=== PATIENT | male | born 1965 | race African-American/Black ===

== ENCOUNTER 2018-11-26 06:07 | Inpatient (IN) | payer MEDICARE ==
[2018-11-26 06:59] LABS: Anion Gap 16 mmol/L (10-20); BUN (Urea Nitrogen) 6 mg/dL (8.4-25.7); Calc. Creatinine Clearance 0 mL/min (70-130); Calcium 9.7 mg/dL (7.8-10.44); Carbon Dioxide 23 mmol/L (22-29); Chloride 89 mmol/L (98-107); Estimated GFR-MDRD 73; Glucose 94 mg/dL (70-105); Potassium 6.5 mmol/L (3.5-5.1); Sodium 121 mmol/L (136-145)
[2018-11-26 07:34] LABS: #Basophils 0.1 thou/uL (0.0-0.2); #Lymphocytes 1.2 thou/uL (1.20-3.40); #Monocytes 0.8 thou/uL (0.11-0.59); %Basophils 0.5 % (0.0-1.0); %Eosinophils 0.4 % (0.0-10.0); %Lymphocytes 11.1 % (21.0-51.0); %Monocytes 7.1 % (0.0-10.0); %Neutrophils 80.9 % (42.0-75.0); Hemoglobin 15.8 g/dL (14.0-18.0); Mean Corpuscular HGB CONC 34.6 g/dL (32.0-36.0); Mean Corpuscular Hemoglobin 34.7 pg (27.0-31.0); Mean Platelet Volume 6.6 fL (7.4-10.4); Platelet Count 362 thou/uL (130-400); RBC Distribution Width 14.3 % (11.5-14.5); Red Blood Cell (RBC) Count 4.56 mill/uL (4.70-6.10); White Blood Cell (WBC) Count 11.1 thou/uL (4.8-10.8)
[2018-11-26] MEDS ORDERED: Insulin Regular 300 UNITS/3 ML VIAL ONE (07:46)
[2018-11-26] MEDS ORDERED: Dextrose 50% Abboject 50 ML SYRINGE ONE (07:46)
[2018-11-26 08:35] LABS: Bilirubin Negative (Negative); Blood, Urine Negative (Negative); Clarity Clear (Clear); Glucose, Urine (Dipstick) Normal (Negative); Leukocyte 75 Leu/uL (Negative); Nitrite Negative (Negative); Protein, Urine (Dipstick) 100 mg/dL (Neg-Trace); RBC/HPF 0-3 HPF (0-3); Squamous Epithelial 0-3 HPF (0-3)
[2018-11-26 08:36] LABS: Bacteria/HPF 1+ HPF (None Seen)
[2018-11-26 08:54] LABS: Creatinine, Urine 172.49 mg/dL (63-166)
[2018-11-26 09:40] VITALS: BMI 21.2
[2018-11-26] MEDS ORDERED: PROVENTIL INHALER 6.7 G (200 INHALATIONS) INH PRN (10:18)
[2018-11-26] MEDS: Hydrocortisone Sod Succ/PF 100 mg/2 ml Vial IVP SCH ×3 (10:41→22:08)
[2018-11-26] MEDS: Sodium Chloride 0.9% 1,000 ML IV SCH ×2 (10:41→22:08)
[2018-11-26] MEDS ORDERED: Thiamine 100 MG TAB PO SCH (10:45)
--- NOTE | 2018-11-26 11:23 | HP ---
CHIEF COMPLAINT: Abnormal labs. HISTORY OF PRESENT ILLNESS: This patient is a 53-year-old male with a history of rheumatoid arthritis, who presented to the emergency department. He reports that he presented to his primary care physician for his annual physical. He had labs obtained as part of that and was subsequently called by his PCP indicating that his sodium level was too low at 118 and he needed to present to the hospital. The patient did present here and his sodium was low as well as his potassium being somewhat high. The patient reports that he has had high potassium levels in the past on outpatient labs done by his fisheries inspector, Dr. Kathrine Ribeiro. The patient reports that he has felt just some generalized weakness and intermittent episodes of feeling hot, but this is longstanding. He has no new symptoms and reports that he did not present for labs because he felt in any way other than his baseline, he was simply getting his annual physical. The patient does report drinking beer daily, but reports it is less than 5 per day on average. He reports a fairly normal diet. Indicates that his rheumatoid prevents him from doing much cooking, but he does eat a lot of fast food, but does not shy away from proteins or meats at all. REVIEW OF SYSTEMS: The patient reports some joint pain and occasional swelling related to his rheumatoid arthritis. Otherwise, all systems reviewed, all pertinent positives and negatives noted in HPI. PAST MEDICAL HISTORY: Notable for hypertension, COPD, rheumatoid arthritis, followed by Dr. Kathrine Ribeiro, history of vocal cord cancer , but that is no longer being followed and considered cleared. He has a history of atrial fibrillation followed by Dr. Oconnor. He also reports a history of a gastric ulcer. Of note, the patient says he has been on steroids for many years and that seems to be the only medication that truly controls his rheumatoid pain. SOCIAL HISTORY: The patient does drink beer. He reports less than 5 per day on average. Denies drugs. He says he smokes about 4 cigars per day. He is single. His brother is his surrogate decision maker. He is full code. FAMILY HISTORY: Notable for hypertension and diabetes. ALLERGIES: CODEINE, FLU VACCINE, SULFA, AND TRAMADOL. CURRENT MEDICATIONS: 1. Albuterol nebs 2.5 q.i.d. p.r.n. 2. Prednisone 10 mg p.o. daily. 3. Albuterol 1 inhalation q.4 hours p.r.n. 4. Multivitamin. 5. Magnesium. 6. Zinc. 7. Vitamin D3 1 p.o. daily. 8. Qvar 1 inhalation b.i.d. 9. Lisinopril 10 mg daily. 10. Plaquenil 200 mg b.i.d. 11. Folvite 1 mg p.o. daily. 12. Vitamin D3 1000 units p.o. daily. 13. Sulindac 150 mg b.i.d. 14. Vitamin B complex 1 p.o. daily. PHYSICAL EXAMINATION: VITAL SIGNS: Temperature 97.7, pulse 75, respirations 18, O2 saturations 94% on room air, and BP is 123/76. GENERAL APPEARANCE: Thin, age-appropriate male, in no distress. Awake, alert, oriented, pleasant, and cooperative. HEENT: [place]. No OP lesions. Denture is in place. NECK: Supple and symmetric. No lymphadenopathy, JVD, or carotid bruits. HEART: Regular rate and rhythm. No murmurs, gallops, or rubs. LUNGS: Clear to auscultation bilaterally. Good chest wall expansion and air exchange. ABDOMEN: Soft, nontender, and nondistended. Positive bowel sounds. No masses. No organomegaly. EXTREMITIES: No cyanosis, clubbing, or edema. No significant rheumatoid changes. PSYCH: Normal affect and behavior. NEUROLOGICAL: The patient appears to be fully intact. Moving all extremities spontaneously. Cranial nerves and cognition are normal. LABORATORY DATA: White count 11.1, hemoglobin 15.8, platelets 362. Sodium 121, potassium 6.5, chloride 89, CO2 23, BUN 6, creatinine 1.25. Urinalysis shows mild proteinuria, trace ketones, trace leukocyte esterase, 0-3 red cells, 7-10 white cells, some hyaline casts. Urine creatinine is 1.72. Urine sodium is 20. IMPRESSION AND PLAN: 1. Hyponatremia, possibly a combination of beer potomania and adrenal insufficiency. The patient has a history of hyponatremia going back to 2014, at which time his sodium levels ranged from 128 to 132. The highest recorded is 134 in 2017. The patient does have a fair amount of intake of beer. He has higher levels recorded in the past. He obviously has some macrocytosis, so it is unclear if this is enough to cause his chronic hyponatremia. He also has high potassium levels and has been on steroids for a long time. Therefore, adrenal insufficiency is a concern as well. We will cover with hydrocortisone. We will give very gentle hydration. Consult Nephrology. 2. Hyperkalemia. Again, could be some component of adrenal insufficiency. The patient does report that he has had high potassium in the past. In the emergency department, he received some calcium gluconate, D50 and insulin. His EKG does not show any significant peaking of the T-waves. We will again hydrate gently and recheck his lab values in a couple of hours. If it continues to be problematic , we will consider some Kayexalate. 3. History of rheumatoid arthritis. Continue with the Plaquenil, Sulindac and prednisone. 4. History of atrial fibrillation. Continue the Multaq. He is not currently on anticoagulation. 5. Hypertension, continue with lisinopril. 6. Chronic obstructive pulmonary disease. Continue bronchodilators and inhaled steroids. 7. Mild macrocytosis, likely secondary to chronic alcohol consumption and rheumatoid arthritis. Continue with the folic acid. We will add p.o. thiamine. 8. Mild leukocytosis, likely secondary to the ongoing steroid use. Job ID: [id number] [facility]
[2018-11-26 13:00] LABS: Anion Gap 15 mmol/L (10-20); BUN (Urea Nitrogen) 6 mg/dL (8.4-25.7); Calc. Creatinine Clearance 76 mL/min (70-130); Calcium 9.5 mg/dL (7.8-10.44); Carbon Dioxide 19 mmol/L (22-29); Chloride 92 mmol/L (98-107); Estimated GFR-MDRD 88; Glucose 78 mg/dL (70-105); Potassium 4.3 mmol/L (3.5-5.1); Sodium 122 mmol/L (136-145)
[2018-11-26] MEDS: Mometasone 100 MCG HFA INHALER INH SCH (18:38)
[2018-11-26] MEDS: Hydroxychloroquine Sulfate 200 MG TAB PO SCH (22:01)
[2018-11-27] MEDS: Hydrocortisone Sod Succ/PF 100 mg/2 ml Vial IVP SCH (05:36)
[2018-11-27] MEDS: Mometasone 100 MCG HFA INHALER INH SCH (06:28)
[2018-11-27 07:35] LABS: Anion Gap 12 mmol/L (10-20); BUN (Urea Nitrogen) 8 mg/dL (8.4-25.7); Calc. Creatinine Clearance 88 mL/min (70-130); Calcium 8.8 mg/dL (7.8-10.44); Carbon Dioxide 20 mmol/L (22-29); Chloride 96 mmol/L (98-107); Estimated GFR-MDRD Greater than 90; Glucose 112 mg/dL (70-105); Potassium 4.1 mmol/L (3.5-5.1); Sodium 124 mmol/L (136-145)
--- NOTE | 2018-11-27 08:46 | PDOC.HOSPP ---
- Subjective Subjective: Feels well. No complaints. - Objective Vital Signs & Weight: Vital Signs (12 hours) Temp Pulse Resp BP Pulse Ox 11/27/18 08:10 97.7 F 63 18 162/84 H 98 11/27/18 06:28 59 L 16 99 11/27/18 04:00 97.9 F 65 16 174/85 H 95 11/26/18 23:30 74 140/86 Weight Weight 150 lb 9.6 oz I&O: 11/26/18 11/27/18 11/28/18 06:59 06:59 06:59 Intake Total 980 Output Total 1600 Balance -620 Result Diagrams: 11/26/18 06:31 11/27/18 06:51 ROS - Review of Systems All systems: All other ROS were reviewed and found negative. - Medication Medications: Active Medications Generic Name Dose Route Start Last Admin Trade Name Freq PRN Reason Stop Dose Admin Hydroxychloroquine Sulfate 200 mg 11/26/18 21:00 11/26/18 22:01 Plaquenil PO 200 mg BID APARNA Administration Mometasone Furoate 1 puff 11/26/18 18:30 11/27/18 06:28 Asmanex Hfa 100 Mcg INH 1 puff BID-RT APARNA Administration Sulindac 150 mg 11/26/18 21:00 11/26/18 22:01 Clinoril PO 150 mg BID APARNA Administration - Exam NAD, awake alert Neck: supple, symmetric, no JVD, no Thyromegaly, no lymphadenopathy, no carotid bruit Heart: RRR, no murmur, no gallops, no rubs, normal peripheral pulses Respiratory: CTAB, no wheezes, no rales, no ronchi, normal chest expansion, no tachypnea, normal percussion Gastrointestinal: soft, non-tender, non-distended, normal bowel sounds, no palpable masses, no hepatomegaly, no splenomegaly, no bruit Extremities: no cyanosis, no clubbing, no edema Skin: normal turgor, no lesions, no rashes Hosp A/P (1) Hyperkalemia Code(s): E87.5 - HYPERKALEMIA Status: Acute (2) Atrial fib/flutter, transient Code(s): PGU1428 - Status: Acute (3) Hyponatremia Code(s): E87.1 - HYPO-OSMOLALITY AND HYPONATREMIA Status: Acute (4) Rheumatoid arthritis Code(s): M06.9 - RHEUMATOID ARTHRITIS, UNSPECIFIED Status: Acute (5) COPD (chronic obstructive pulmonary disease) Status: Acute - Plan Hyponatremia is exacerbation of chronic hyponatremia. Likely related to steroids and beer consumption. Improved somewhat today. Will continue with NS, restrict free water. Transfer to [facility]. Recheck labs in am. Nephrology consult Pending. Apparently afib was a transient episode. He is not on anticoagulation. NSR on monitor.
[2018-11-27] MEDS ORDERED: Lisinopril 10 MG TAB PO SCH (09:00)
[2018-11-27] MEDS: Thiamine 100 MG TAB PO SCH (09:24)
[2018-11-27] MEDS: Hydroxychloroquine Sulfate 200 MG TAB PO SCH ×2 (09:24→20:27)
[2018-11-27] MEDS: Enoxaparin Sodium 40 MG/0.4 ML SYRINGE SC SCH (09:24)
[2018-11-27] MEDS: predniSONE 5 MG TAB PO SCH (09:24)
[2018-11-27] MEDS: Folic Acid 1 MG TAB PO SCH (09:24)
[2018-11-27] MEDS: Sodium Chloride 0.9% 1,000 ML IV SCH (09:25)
[2018-11-28] MEDS: Sodium Chloride 0.9% 1,000 ML IV SCH (02:19)
[2018-11-28 06:33] LABS: Anion Gap 11 mmol/L (10-20); BUN (Urea Nitrogen) 10 mg/dL (8.4-25.7); Calc. Creatinine Clearance 96 mL/min (70-130); Calcium 8.8 mg/dL (7.8-10.44); Carbon Dioxide 25 mmol/L (22-29); Chloride 101 mmol/L (98-107); Estimated GFR-MDRD Greater than 90; Glucose 79 mg/dL (70-105); Potassium 3.8 mmol/L (3.5-5.1); Sodium 133 mmol/L (136-145)
[2018-11-28] MEDS: Mometasone 100 MCG HFA INHALER INH SCH ×2 (07:35→07:37)
[2018-11-28 08:14] VITALS: BP 167/73; TEMP 97.6
[2018-11-28] MEDS: Folic Acid 1 MG TAB PO SCH (08:47)
[2018-11-28] MEDS: Thiamine 100 MG TAB PO SCH (08:48)
[2018-11-28] MEDS: predniSONE 5 MG TAB PO SCH (08:48)
[2018-11-28] MEDS: Enoxaparin Sodium 40 MG/0.4 ML SYRINGE SC SCH (08:49)
[2018-11-28] MEDS: Hydroxychloroquine Sulfate 200 MG TAB PO SCH (08:50)
--- NOTE | 2018-11-28 10:42 | CON ---
DATE OF CONSULTATION: REQUESTING PHYSICIAN: Richie Abbasi MD REASON FOR CONSULTATION: Hyponatremia. IMPRESSION: Hyponatremia, this is likely beer potomania, they cannot completely rule out SIADH at this point, hyperkalemia , the patient is on lisinopril. PLAN: 1. Discontinue normal saline. 2. Urine chemistry including urine sodium and osmolality to evaluate workup of hyponatremia and treat accordingly. 3. Regular diet with increased amount of protein. 4. Counseled on the need to discontinue alcohol abuse. 5. Further management will be dependent on the clinical course as well as results of the urine chemistry. 6. Discontinue lisinopril and use alternative antihypertensive medications if blood pressure begins to go up. HISTORY OF PRESENT ILLNESS: A 53-year-old gentleman with significant history of rheumatoid arthritis who presented under direction of primary care physician because of very low sodium 118. The patient does drink significant on daily basis. The patient could not even quantify how much he drinks actively and has been doing this for many years. The patient does have history of dizziness, which I do believe is the combination of hyponatremia and possible alcohol effect. Of note, the patient is also found to be hyperkalemic and according to the patient, he has been dealing with these for sometime. As a result of all these findings in terms of electrolyte abnormality, decision has been taken to involve Renal in the management of this case. PAST MEDICAL HISTORY: Significant for; 1. Hypertension. 2. COPD. 3. Rheumatoid arthritis. 4. Atrial fibrillation. 5. Gastric ulcer. SOCIAL HISTORY: Significant for alcohol consumption and cigar. FAMILY HISTORY: Not significantly related to present illness. REVIEW OF SYSTEMS: As documented in the body of the history. All other systems were reviewed and found not to be significantly related to present illness. ALLERGIES: TO CODEINE, FLU VACCINE, SULFA, AND TRAMADOL. PHYSICAL EXAMINATION: GENERAL: The patient was found not to be in any obvious distress and noted with the following vital signs. VITAL SIGNS: Afebrile, temperature 97.7, pulse 75, respiratory rate of 18, O2 saturation of 94% with blood pressure 123/76. HEENT: Unremarkable. CARDIOVASCULAR SYSTEM: First and second heart sounds were heard. RESPIRATORY SYSTEM: Clear to auscultation. DIGESTIVE SYSTEM: Revealed a benign abdomen. Positive bowel sounds. EXTREMITIES: No peripheral edema. SKIN: No new gross rash. LYMPHATICS: No peripheral lymphadenopathy. SUMMARY: A 53-year-old gentleman who presented with significant electrolyte abnormality including hyperkalemia and hyponatremia. Thank you for this consultation. We will follow with you. Job ID: [id number]
== END 2018-11-28 11:04 | disposition home or self-care (01) | DRG 641 ==
LOC: ERS 06:07 → 2NO 09:36 → ONC 11-27 11:23
PROVIDERS: ADMIT Internal Medicine; ATTEND Internal Medicine
DX: E87.1 Hypo-osmolality and hyponatremia (principal); M06.9 Rheumatoid arthritis, unspecified; I10 Essential (primary) hypertension; J44.9 Chronic obstructive pulmonary disease, unspecified; I48.91 Unspecified atrial fibrillation; F17.210 Nicotine dependence, cigarettes, uncomplicated; E87.5 Hyperkalemia; D75.89 Other specified diseases of blood and blood-forming organs; T38.0X5A Adverse effect of glucocorticoids and synthetic analogues, initial encounter; D72.829 Elevated white blood cell count, unspecified; Z88.5 Allergy status to narcotic agent; Z88.2 Allergy status to sulfonamides; Z88.7 Allergy status to serum and vaccine
CPT/HCPCS: 36415; 80048; 81003; 81015; 82570; 83930; 83935; 84300; 84443; 85025; 93005; 96365; 96375; J0610; J1650; J1720; J1815; J3490; J7512

== ENCOUNTER 2019-03-03 08:29 | Outpatient (CLI) | payer MEDICARE ==
--- NOTE | 2019-03-03 10:51 | BD ---
BONE DENSITOMETRY USING DEXA: HISTORY: Postmenopausal screening for osteoporosis. FINDINGS: Lumbar Spine: BMD (g/cm2) L1 0.701 T-Score: -3.4 Z-Score: -0.8 L2 0.910 T-Score: -1.7 Z-Score: -2.1 L3 0.877 T-Score: -2.1 Z-Score: -2.5 L4 0.788 T-Score: -2.7 Z-Score: -3.2 L1-L4 0.815 T-Score: -2.5 Z-Score: -3.0 Femoral Neck: 0.574 T-Score: -2.6 Z-Score: -2.1 Total Femur: 0.719 T-Score: -2.1 Z-Score: -1.9 The 10-year fracture risk for a major osteoporotic fracture is 9.3% and for a hip fracture is 3.7%. Impression: Osteoporosis. POS: OFF
== END 2019-03-03 08:30 | disposition home or self-care (01) ==
LOC: BICMAMMO 08:29
PROVIDERS: ATTEND Internal Medicine Rheumatology
DX: M81.8 Other osteoporosis without current pathological fracture (principal)
CPT/HCPCS: 77080

== ENCOUNTER 2019-03-18 11:50 | Emergency (ER) | payer MEDICARE ==
--- NOTE | 2019-03-18 12:35 | RAD ---
EXAM: Chest PA and lateral: HISTORY: Wheezing. COMPARISON: 02/12/2016 FINDINGS: Heart: Normal cardiac silhouette Aorta: Unremarkable Pulmonary vessels: Normal Costophrenic angles: Costophrenic angles are clear. Lungs: No consolidation or masses. Hyperinflation. Chronic changes. Pneumothorax: No pneumothorax Osseous structures: No acute osseous abnormalities. Previous vertebroplasty. Stable chronic compressi on fractures of the mid thoracic spine IMPRESSION: 1. No acute cardiopulmonary process. 2. Hyperinflation. Chronic changes.
== END 2019-03-18 13:28 | disposition home or self-care (01) ==
LOC: ERS 11:50
DX: J44.1 Chronic obstructive pulmonary disease with (acute) exacerbation (principal); I48.91 Unspecified atrial fibrillation; M06.9 Rheumatoid arthritis, unspecified; F17.210 Nicotine dependence, cigarettes, uncomplicated; Z79.899 Other long term (current) drug therapy; Z79.51 Long term (current) use of inhaled steroids; Z79.52 Long term (current) use of systemic steroids
CPT/HCPCS: 71046; 87081; 87430; 94640

== ENCOUNTER 2019-03-27 12:47 | Outpatient (CLI) | payer MEDICARE ==
--- NOTE | 2019-03-27 12:58 | RAD ---
XR Chest Pa Lat @ [facility] History: Dyspnea Comparison: Radiograph March 18, 2019 Findings: Chronic scarring right lung base. Lungs are hyperinflated. No pneumothorax. No effusion. Mu ltiple thoracic spine compression fractures, some of which contain cement. Impression: Obstructive pulmonary disease otherwise no acute intrathoracic abnormality.
== END 2019-03-27 12:48 | disposition home or self-care (01) ==
LOC: RAD 12:47
PROVIDERS: ATTEND Internal Medicine Critical Care Medicine
DX: R06.00 Dyspnea, unspecified (principal); J44.9 Chronic obstructive pulmonary disease, unspecified
CPT/HCPCS: 71046

== ENCOUNTER 2019-04-21 19:01 | Inpatient (IN) | payer MEDICARE ==
[2019-04-21 20:05] LABS: #Eosinphils 0.2 thou/uL (0.0-0.7); #Lymphocytes 1.2 thou/uL (1.20-3.40); #Monocytes 0.9 thou/uL (0.11-0.59); #Neutrophils 8.5 thou/uL (1.40-6.50); %Basophils 0.2 % (0.0-1.0); %Eosinophils 1.5 % (0.0-10.0); %Lymphocytes 10.8 % (21.0-51.0); %Monocytes 8.1 % (0.0-10.0); %Neutrophils 79.6 % (42.0-75.0); Hemoglobin 13.6 g/dL (14.0-18.0); Mean Corpuscular Hemoglobin 33.3 pg (27.0-31.0); Mean Corpuscular Volume 97.7 fL (78.0-98.0); Mean Platelet Volume 6.3 fL (7.4-10.4); Platelet Count 357 thou/uL (130-400); RBC Distribution Width 14.5 % (11.5-14.5); Red Blood Cell (RBC) Count 4.09 mill/uL (4.70-6.10); White Blood Cell (WBC) Count 10.7 thou/uL (4.8-10.8)
[2019-04-21 20:26] LABS: ALT (SGPT) 16 U/L (8-55); AST (SGOT) 33 U/L (5-34); Albumin 3.9 g/dL (3.5-5.0); Alkaline Phosphatase 143 U/L (40-110); Anion Gap 13 mmol/L (10-20); BUN (Urea Nitrogen) 8 mg/dL (8.4-25.7); Bilirubin, Total 0.6 mg/dL (0.2-1.2); Calc. Creatinine Clearance 0 mL/min (70-130); Calcium 9.4 mg/dL (7.8-10.44); Carbon Dioxide 26 mmol/L (22-29); Chloride 90 mmol/L (98-107); Estimated GFR-MDRD 78; Globulin 4.1 g/dL (2.4-3.5); Glucose 121 mg/dL (70-105); Potassium 5.7 mmol/L (3.5-5.1); Sodium 123 mmol/L (136-145)
--- NOTE | 2019-04-21 21:37 | RAD ---
CHEST PORTABLE ONE VIEW: 04/21/19 HISTORY: Syncope. Heart size is within normal limits. The lungs show chronic change. Vertebroplasty changes are noted. IMPRESSION: No active intrathoracic disease. POS: [facility]
[2019-04-21] MEDS ORDERED: Piperacillin/Tazobactam 4.5 GM VIAL ONE (22:15)
[2019-04-22] MEDS ORDERED: Acetaminophen 325 MG TAB PO PRN (01:47)
[2019-04-22] MEDS ORDERED: Ondansetron PF 4 MG/2 ML Vial IVP PRN (01:47)
[2019-04-22] MEDS ORDERED: PROVENTIL INHALER 6.7 G (200 INHALATIONS) INH PRN (01:51)
[2019-04-22] MEDS ORDERED: Albuterol Sulfate 2.5 mg/3 ml Neb NEB PRN (01:51)
[2019-04-22] MEDS ORDERED: Lorazepam 2 MG/ML VIAL SLOW IVP PRN (01:58)
[2019-04-22] MEDS ORDERED: Sodium Chloride 0.9% 1,000 ML IV SCH ×2 (02:15→09:11)
[2019-04-22] MEDS ORDERED: Amlodipine 10 MG TAB PO SCH (02:15)
--- NOTE | 2019-04-22 02:38 | HP ---
PRESENTING COMPLAINT: Weakness and confusion. HISTORY OF PRESENT ILLNESS: John Paul Putnam is a 54-year-old male with history of chronic daily beer intake, previous history of hyponatremia, who presented because of feeling of incoordination and impending confusion since the last 3 days. Symptoms started one day after his last use of alcohol. The patient states he drinks about 4 to 5 beers daily with intermittent increase with festivities. He denies any dizziness or vertigo. Symptoms continue to persist and the patient felt like he was poisoned and came to the ED. He admits to generalized body aches. He denies any worsening specific joint pain symptoms. In the ED, he was noted with a sodium level of 123. The patient states his symptoms are similar to his symptoms he experienced last time, he had a low sodium. He admits to regular food intake and low salt intake. The patient admits to recent cough with chest congestion. He was placed on antibiotics. Patient says he was placed on 2 antibiotics. He is unsure of the names, but one of them seems more like Bactrim. PAST MEDICAL HISTORY: Significant for rheumatoid arthritis; hypertension; COPD; history of vocal cord cancer; history of atrial fibrillation, followed with Dr. Oconnor; history of gastric ulcer; history of multiple joint osteoarthritis, on chronic steroids. SOCIAL HISTORY: Patient drinks about 4 to 5 beers per day. History of cigar use. He is single and resides in the community and fully functional at baseline. FAMILY HISTORY: Significant for hypertension, diabetes. ALLERGIES: CODEINE, FLU VACCINE, SULFA, AND TRAMADOL. REVIEW OF SYSTEMS: All systems reviewed x14 and were negative. HOME MEDICATIONS: See full medication list, but include lisinopril, Plaquenil, Folvite, magnesium, zinc, vitamin B12, Sulindac, prednisone 10 mg daily. PHYSICAL EXAMINATION: CURRENT VITAL SIGNS: Blood pressure of 178/94, pulse of 83, respiratory rate of 18, temperature 98.4, O2 sats 96% on room air. GENERAL: Average built, middle-aged male, appear older, not in any distress. HEENT: Pupils equal, reactive to light. Extraocular motor movement intact. NECK: No JVD. No carotid bruit. RESPIRATORY: Good air entry. No crepitation. CARDIOVASCULAR: S1, S2. Rate and rhythm regular. ABDOMEN: Full, soft, nontender. Bowel sounds positive. EXTREMITIES: No calf tenderness. No pedal edema. NEUROLOGIC: Patient is alert, oriented. Coordination intact. No neurological focal motor deficit. LABORATORY DATA: WBC 10.7, hemoglobin 13, platelets 357, neutrophils 79%. Sodium 123, potassium 5.7, troponin 0.02, creatinine 1.1, albumin 3.9. Urine sodium of 30, urine creatinine of 34. IMPRESSION: 1. Symptomatic hyponatremia. 2. Hypertension. 3. History of atrial fibrillation, on Multaq. 4. Deep venous thrombosis. PLAN: We admit the patient to inpatient status to manage patient for the following; 1. Hyponatremia, likely due to antibiotics from recent Bactrim use, although appeared to be having history of recurrent hyponatremia. We will hold further lisinopril use, although not in home medications now. We do gentle IV fluid hydration since this hyponatremia is suggestive of volume depletion and body sodium depletion. We will restrict free water intake to less than 1500 mL per day. We will start sodium tabs. 2. Hyperkalemia, likely due to medication use. Follow with normal saline. If persistently elevated above 5, may need Kayexalate, but no need for now. 3. Hypertension. Continue Bystolic. We will add amlodipine. 4. DVT prophylaxis, subcutaneous heparin. 5. Chronic tobacco use. We will do nicotine patch. We will follow along. Job ID: [id number]
[2019-04-22 02:43] LABS: #Eosinphils 0.2 thou/uL (0.0-0.7); #Lymphocytes 2.3 thou/uL (1.20-3.40); #Monocytes 1.7 thou/uL (0.11-0.59); #Neutrophils 7.9 thou/uL (1.40-6.50); %Basophils 0.4 % (0.0-1.0); %Eosinophils 1.8 % (0.0-10.0); %Lymphocytes 18.9 % (21.0-51.0); %Monocytes 14.2 % (0.0-10.0); %Neutrophils 64.8 % (42.0-75.0); Hemoglobin 13.2 g/dL (14.0-18.0); Mean Corpuscular HGB CONC 34.3 g/dL (32.0-36.0); Mean Corpuscular Hemoglobin 33.7 pg (27.0-31.0); Mean Corpuscular Volume 98.1 fL (78.0-98.0); Mean Platelet Volume 6.6 fL (7.4-10.4); Platelet Count 347 thou/uL (130-400); RBC Distribution Width 14.5 % (11.5-14.5); Red Blood Cell (RBC) Count 3.93 mill/uL (4.70-6.10); White Blood Cell (WBC) Count 12.1 thou/uL (4.8-10.8)
[2019-04-22 03:02] LABS: Anion Gap 15 mmol/L (10-20); BUN (Urea Nitrogen) 7 mg/dL (8.4-25.7); Calc. Creatinine Clearance 0 mL/min (70-130); Carbon Dioxide 21 mmol/L (22-29); Chloride 91 mmol/L (98-107); Estimated GFR-MDRD Greater than 90; Glucose 95 mg/dL (70-105); Potassium 4.4 mmol/L (3.5-5.1); Sodium 123 mmol/L (136-145)
[2019-04-22 03:27] VITALS: BMI 20.5
[2019-04-22] MEDS: Nicotine 21 MG PATCH TD SCH (04:30)
[2019-04-22 05:09] LABS: Bilirubin Negative (Negative); Blood, Urine Negative (Negative); Clarity Clear (Clear); Glucose, Urine (Dipstick) Normal (Negative); Leukocyte Negative Leu/uL (Negative); Nitrite Negative (Negative); Protein, Urine (Dipstick) 70 mg/dL (Neg-Trace); Squamous Epithelial 0-3 HPF (0-3); Urobilinogen Normal mg/dL (Less than 2); WBC/HPF 0-3 HPF (0-3)
[2019-04-22 05:10] LABS: Bacteria/HPF 1+ HPF (None Seen)
[2019-04-22 05:42] LABS: Magnesium 1.6 mg/dL (1.6-2.6)
[2019-04-22] MEDS: Mometasone 100 MCG HFA INHALER INH SCH ×2 (07:05→18:17)
[2019-04-22] MEDS: Enoxaparin Sodium 40 MG/0.4 ML SYRINGE SC SCH (08:19)
[2019-04-22] MEDS: Famotidine 20 MG TAB PO SCH ×2 (08:19→20:40)
[2019-04-22] MEDS: Hydroxychloroquine Sulfate 200 MG TAB PO SCH ×2 (08:19→20:40)
[2019-04-22] MEDS: Nebivolol HCl 5 MG TAB PO SCH (08:19)
[2019-04-22] MEDS: Folic Acid 1 MG TAB PO SCH (08:19)
[2019-04-22] MEDS: predniSONE 20 MG TAB PO SCH (08:19)
--- NOTE | 2019-04-22 12:35 | CON ---
DATE OF CONSULTATION: SURGERY: Renal Medicine. HISTORY OF PRESENT ILLNESS: Mr. Coker is a 54-year-old black male, who was admitted for generalized weakness and confusion. At that time, he was noted to be hyponatremic with a serum sodium of 123. He was given empiric volume repletion. The feeling was that he may have hypovolemic hyponatremia. Of interest, this patient has heavy alcohol intake and this may have precipitated and played a factor in his hyponatremia. This morning, I examined the patient. He is more awake and less confused. REVIEW OF SYSTEMS: No chest pain. Positive for confusion. No nausea. No vomiting. No diarrhea. No constipation. No productive cough. No gross hematuria. No dysuria. Positive for joint pains. No productive cough. No fever or chills. Appetite and energy level are fair. MEDICATIONS: Home medications included the following; 1. Systane as directed. 2. Vitamin B complex 100 mg daily. 3. Protonix 40 mg b.i.d. 4. Oxymetazoline nasal spray as directed. 5. Vitamin B12 of 500 mcg daily. 6. Buspirone 10 mg p.o. b.i.d. 7. Bystolic 5 mg daily. 8. Multaq 400 mg p.o. b.i.d. 9. Folic acid 1 mg once a day. 10. Albuterol neb treatment as directed. 11. Sulindac 150 mg p.o. b.i.d. 12. Prednisone 10 mg daily. Current hospital medications have included; 1. Famotidine 20 mg p.o. b.i.d. 2. Currently, normal saline at 125 mL/hour. 3. He is also on nicotine patch. 4. He is also on mometasone one puff b.i.d. 5. Lorazepam. 6. Plaquenil 200 mg p.o. b.i.d. PAST MEDICAL HISTORY: 1. The patient has history of COPD. 2. He has hypertension. 3. Chronic AFib. 4. DJD/rheumatoid arthritis. 5. Vocal cord cancer, in remission. 6. Gastric ulcer. PAST SURGICAL HISTORY: Status post colonoscopy, status post cholecystectomy, status post hernia repair, and status post upper GI endoscopy. SOCIAL HISTORY: The patient lives in [place]. He lives alone. He has no children. He is single. Medically disabled. 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 He has smoked for 20 years, 1 pack a day. He denies any smoking at the present time. No IV drug abuse. ALLERGIES: CODEINE, FLU VACCINE, SULFA, AND TRAMADOL. TRAUMA: None. IMMUNIZATIONS: Not up-to-date. HOSPITALIZATIONS: Please see past medical history. FAMILY HISTORY: No family history of ESRD. PHYSICAL EXAMINATION: VITAL SIGNS: Blood pressure is 152/96, heart rate 79, respiratory rate 18, temperature 98.6, and pulse ox is 95%. GENERAL: Noted to be awake, alert, comfortable, not in overt distress. SKIN: Adequate turgor. HEENT: Pinkish conjunctivae. Anicteric sclerae. NECK: No neck mass. No carotid bruits. No JVD. CHEST: No deformities. LUNGS: Clear breath sounds. No wheezing. No crackles. HEART: Normal sinus rhythm. No murmur. No gallops. No rubs. ABDOMEN: Globular, soft, and nontender. No masses. EXTREMITIES: No edema. No deformities. NEUROLOGICAL: The patient is oriented to 3 spheres. Moving all extremities. No tremors. No asterixis. No ataxia. LABORATORY DATA: Laboratories of April 22, 2019; sodium 123, potassium 4.4, chloride 91, carbon dioxide 21, BUN 7, and creatinine 0.96, and calcium 9.0. TSH 1.6. Uric acid is noted to be at 8.0. Serum osmolality is 259. Urinalysis; specific gravity 1.004, protein is 70, rbc 4 to 6, and wbc 0 to 3. On April 21, 2019; chest x-ray shows no acute disease. ASSESSMENT AND PLAN: 1. Hyponatremia secondary to a presumptive diagnosis of hypovolemic hyponatremia. Empiric volume repletion was initiated at the ER. My feeling is this could be related from his heavy alcohol intake causing the hyponatremia. Continue free water restriction. Continue normal saline for the moment. We have decided to repeat his serum sodium to see where the patient's serum sodium is now. If this further worsens, my bias is to hold off the normal saline and replace it with hypertonic saline - 1.5% sodium chloride. 2. Uric acid did not suggest syndrome of inappropriate antidiuretic hormone secretion. Serum osmolality is noted to be decreased. Urine osmolality is currently pending. Continue current management. The patient's mentation is much improved. Job ID: [id number]
[2019-04-22 13:36] LABS: Anion Gap 13 mmol/L (10-20); BUN (Urea Nitrogen) 7 mg/dL (8.4-25.7); Calc. Creatinine Clearance 85 mL/min (70-130); Calcium 8.7 mg/dL (7.8-10.44); Carbon Dioxide 21 mmol/L (22-29); Chloride 95 mmol/L (98-107); Estimated GFR-MDRD Greater than 90; Glucose 121 mg/dL (70-105); Potassium 4.4 mmol/L (3.5-5.1); Sodium 125 mmol/L (136-145); Uric Acid 8.3 mg/dL (3.5-7.2)
[2019-04-23] MEDS: Nicotine 21 MG PATCH TD SCH (03:25)
[2019-04-23 06:17] LABS: Anion Gap 12 mmol/L (10-20); BUN (Urea Nitrogen) 8 mg/dL (8.4-25.7); Calc. Creatinine Clearance 89 mL/min (70-130); Calcium 8.7 mg/dL (7.8-10.44); Carbon Dioxide 24 mmol/L (22-29); Chloride 97 mmol/L (98-107); Estimated GFR-MDRD Greater than 90; Glucose 84 mg/dL (70-105); Potassium 4.2 mmol/L (3.5-5.1); Sodium 129 mmol/L (136-145)
--- NOTE | 2019-04-23 07:09 | PDOC.EVN ---
Event Note - Event Note Event Note: LATE ENTRY NOTE 04/22: The patient states that he drinks alcohol, too many drinks to count, but wants to quit. Denies n/v/headache, dizziness, lightheadedness. Sodium came up to 125 today, IV fluids discontinued General: Alert, awake, orientd times three CVS: RRR, no murmurs, rubs, gallops Lungs: CTAB Abdomen: + BS, soft, nontender, nondistended Extremities: no edema Labs: sodium up to 125 Hyponatremia: likely secondary to beer potomania - d/c IV fluids - recheck BMP in am, make sure sodium is not rising too fast - can likely d/c in am if patient asymptomatic
[2019-04-23] MEDS: Mometasone 100 MCG HFA INHALER INH SCH (07:23)
[2019-04-23] MEDS ORDERED: Amlodipine 10 MG TAB PO SCH (09:00)
[2019-04-23] MEDS: Folic Acid 1 MG TAB PO SCH ×2 (09:16→09:17)
[2019-04-23] MEDS: Nebivolol HCl 5 MG TAB PO SCH (09:17)
[2019-04-23] MEDS: predniSONE 20 MG TAB PO SCH (09:17)
[2019-04-23] MEDS: Famotidine 20 MG TAB PO SCH (09:18)
[2019-04-23] MEDS: Hydroxychloroquine Sulfate 200 MG TAB PO SCH (09:18)
[2019-04-23] MEDS: Enoxaparin Sodium 40 MG/0.4 ML SYRINGE SC SCH (09:19)
--- NOTE | 2019-04-23 11:49 | DIS ---
DATE OF ADMISSION: 04/21/2019 DATE OF DISCHARGE: 04/23/2019 DISCHARGE DIAGNOSES: 1. Beer potomania 2. Hyponatremia secondary to alcohol intake; 3, Acute encephalopathy, possibly secondary to hyponatremia versus adverse effect of buspirone 4. Anemia 5. Elevated alkaline phosphatase. 6. Leukocytosis 7. Hypertension CONSULTATIONS: Nephrology with Dr. Pavon. PROCEDURES: None. BRIEF HISTORY OF PRESENT ILLNESS: This is a 54-year-old male with past medical history of alcoholism, who presented to the ER due to feeling of confusion and incoordination. The patient states that his last drink was on the . The patient denies any history of withdrawal symptoms after stopping alcohol. The patient states that he was recently started on buspirone for anxiety and states that it was making him feel very confused and out of it. Upon presentation in the ER, the patient was noted to have a sodium level of 123. HOSPITAL COURSE: Hyponatremia secondary to beer potomania: The patient initially presented with a sodium level of 123. The patient was started on free water restriction to less than 1500 mL per day. He was also started on IV fluids. The patient's sodium level improved to 125. He underwent Nephrology consultation, who recommended stopping his IV fluids. His IV fluids were stopped on the . The patient's sodium level improved to 129 on the day of discharge. The patient denied any dizziness, lightheadedness, or headaches. The patient was advised to stop drinking alcohol. The patient states that he will stop his alcohol intake slowly rather than stopping it cold turkey. The patient was told to take a 1500 mL fluid restriction if he continues to drink alcohol. He should follow up with his PCP in a week and have a repeat BMP done in a week. Hyperkalemia: The patient presented with a potassium of 5.7. This resolved to a potassium of 4.4 with IV fluid hydration. Anemia: The patient had a hemoglobin of 13.2 and MCV of 98. The patient denies any bleeding. The patient can have his anemia worked up as an outpatient with his PCP. Leukocytosis: The patient had a white blood cell count of 12.1. The patient has no fevers, chills, cough, nausea, vomiting, or diarrhea. His chest x-ray on admission was negative. UA was unremarkable for infection. The patient has had an elevated white count ranging from 11 to 12 for the past two years. The patient could have CBC repeated as an outpatient with his PCP. Elevated alkaline phosphatase: The patient has an alkaline phosphatase of 143. The patient denies any abdominal pain, nausea, or vomiting. If he develops abdominal pain, consider abdominal ultrasound as an outpatient. Hypertension: The patient states that he takes Bystolic at home. His blood pressure, however, was 150s to 180s. Therefore, amlodipine was added as well. He will be discharged on amlodipine 10 mg daily and this should be followed up by his PCP. Anxiety/acute encephalopathy: The patient states that he was feeling out of it after starting buspirone for anxiety. The patient requested that this medication be discontinued. This was discontinued on discharge. UA showed no signs of infction. Rheumatoid arthritis: The patient takes prednisone daily at home. He states that he is taking sulindac, but previously was taking Plaquenil. 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 DISCHARGE PHYSICAL EXAMINATION: VITAL SIGNS: Temperature 98.2, heart rate 86, respiratory rate 16, O2 saturation 94% on room air, blood pressure 153/85. GENERAL: The patient is alert, awake, and oriented x3. CARDIOVASCULAR SYSTEM: Irregular rate and rhythm with no murmurs, rubs, or gallops. LUNGS: Clear to auscultation bilaterally. ABDOMEN: Positive bowel sounds, soft, nontender, and nondistended. EXTREMITIES: No edema. PERTINENT LABORATORY DATA: CBC on 04/22: WBC 12.1, hemoglobin 13.2, hematocrit 38.5, platelet count 347. BMP on 04/23: Na 129, chloride 97. Serum osmolarity on 04/22: 264. LFTs on 04/21: AST 33, ALT 16, alkaline phosphatase 143. UA on 04/21: 70 of protein and 4 to 6 rbc's. Urine osmolarity on 04/22: was 246. Urine creatinine on 04/21: 34.5. Urine sodium on 04/21 : 30. PERTINENT IMAGING: Chest x-ray on 04/21: Shows no acute disease. DISCHARGE CONDITION: Stable. DIET: The patient should be on a heart healthy diet with a 1500 mL fluid restriction given that he is high risk of drinking again on discharge. DISCHARGE INSTRUCTIONS: The patient should follow up with his PCP in a week and have his BMP repeated to reassess his hyponatremia and also have a repeat CBC to follow up anemia and leukocytosis. The patient should also have blood pressure rechecked as an outpatient with PCP due to starting on amlodipine. DISCHARGE MEDICATIONS: New medications: 1. Nicotine patch 20 mg TD q.24 hours. 2. Amlodipine 10 mg p.o. daily. Discontinued medications: Buspirone. All other medications were continued. Please refer to discharge med worksheet. Job ID: [id number] MTDD
[2019-04-23 12:02] VITALS: TEMP 98
[2019-04-23 12:31] VITALS: BP 152/84
--- NOTE | 2019-04-25 14:34 | EKG ---
Test Reason : Blood Pressure : / mmHG Vent. Rate : 076 BPM Atrial Rate : 076 BPM P-R Int : 152 ms QRS Dur : 088 ms QT Int : 400 ms P-R-T Axes : 074 000 072 degrees QTc Int : 450 ms Normal sinus rhythm Septal infarct , age undetermined Abnormal ECG Confirmed by SUHDIR BEAR DO ([id number]), publications editor AMELIE GOMEZ ([id number] on 04/25/2019 2:33:22 PM Referred By: Confirmed By:SUDHIR BEAR DO
== END 2019-04-23 12:20 | disposition home or self-care (01) | DRG 640 ==
LOC: ERS 19:01 → SJJU 23:26
PROVIDERS: ADMIT Internal Medicine; ATTEND Internal Medicine
DX: E87.1 Hypo-osmolality and hyponatremia (principal); G92 Toxic encephalopathy; F10.288 Alcohol dependence with other alcohol-induced disorder; T43.595A Adverse effect of other antipsychotics and neuroleptics, initial encounter; D64.9 Anemia, unspecified; I10 Essential (primary) hypertension; E87.5 Hyperkalemia; F41.9 Anxiety disorder, unspecified; M06.9 Rheumatoid arthritis, unspecified; M89.49 Other hypertrophic osteoarthropathy, multiple sites; R79.89 Other specified abnormal findings of blood chemistry; Z88.5 Allergy status to narcotic agent; Z88.2 Allergy status to sulfonamides; Z88.7 Allergy status to serum and vaccine; Z88.8 Allergy status to other drugs, medicaments and biological substances; Z79.899 Other long term (current) drug therapy; Z79.51 Long term (current) use of inhaled steroids; Z90.49 Acquired absence of other specified parts of digestive tract
CPT/HCPCS: 36415; 36416; 71045; 80048; 80053; 81001; 82533; 82570; 83735; 83930; 83935; 84300; 84443; 84484; 84550; 85025; 93005; 94664; J1650; J2060; J2543; J7512

== ENCOUNTER 2019-06-07 08:16 | Day surgery (SDC) | payer MEDICARE ==
[~2019-06-07 08:16] MED LIST: ABATACEPT IVPB SCH; SODIUM CHLORIDE 0.9% IVPB SCH
[2019-06-07] MEDS ORDERED: Sodium Chloride 0.9% 20 ML ONE (08:39)
[2019-06-07 10:40] VITALS: BP 160/84; TEMP 97.5
== END 2019-06-07 10:39 | disposition home or self-care (01) ==
LOC: ONC/OP 08:16
PROVIDERS: ATTEND Internal Medicine Rheumatology
DX: M05.79 Rheumatoid arthritis with rheumatoid factor of multiple sites without organ or systems involvement (principal); M81.8 Other osteoporosis without current pathological fracture; R91.1 Solitary pulmonary nodule; F10.20 Alcohol dependence, uncomplicated; F17.200 Nicotine dependence, unspecified, uncomplicated; J45.909 Unspecified asthma, uncomplicated; F32.9 Major depressive disorder, single episode, unspecified; J43.9 Emphysema, unspecified; I10 Essential (primary) hypertension; Z79.899 Other long term (current) drug therapy; Z88.2 Allergy status to sulfonamides; Z88.5 Allergy status to narcotic agent; Z88.7 Allergy status to serum and vaccine
CPT/HCPCS: 96413; J0129; J3490

== ENCOUNTER 2019-06-21 08:18 | Day surgery (SDC) | payer MEDICARE ==
[~2019-06-21 08:18] MED LIST changes: -ABATACEPT IVPB SCH; +Abatacept 750 MG in Sodium Chloride 0.9% 70 ML IVPB SCH; -SODIUM CHLORIDE 0.9% IVPB SCH
[2019-06-21] MEDS ORDERED: Sodium Chloride 0.9% 20 ML ONE (08:32)
[2019-06-21 09:14] VITALS: BP 140/81; TEMP 98.9
== END 2019-06-21 13:07 | disposition home or self-care (01) ==
LOC: ONC/OP 08:18
PROVIDERS: ATTEND Internal Medicine Rheumatology
DX: M05.79 Rheumatoid arthritis with rheumatoid factor of multiple sites without organ or systems involvement (principal); Z88.2 Allergy status to sulfonamides; Z88.5 Allergy status to narcotic agent
CPT/HCPCS: 96413; J0129; J3490

== ENCOUNTER 2019-07-19 08:22 | Day surgery (SDC) | payer MEDICARE ==
[2019-07-19] MEDS ORDERED: Sodium Chloride 0.9% 20 ML ONE (08:38)
[2019-07-19 09:14] VITALS: BP 149/81; TEMP 97.6
== END 2019-07-19 09:59 | disposition home or self-care (01) ==
LOC: ONC/OP 08:22
PROVIDERS: ATTEND Internal Medicine Rheumatology
DX: M05.79 Rheumatoid arthritis with rheumatoid factor of multiple sites without organ or systems involvement (principal); Z88.2 Allergy status to sulfonamides; Z88.5 Allergy status to narcotic agent; Z88.7 Allergy status to serum and vaccine
CPT/HCPCS: 96413; J0129; J3490

== ENCOUNTER 2019-08-16 08:12 | Day surgery (SDC) | payer MEDICARE ==
[2019-08-16] MEDS ORDERED: Sodium Chloride 0.9% 20 ML ONE (08:48)
[2019-08-16 09:54] VITALS: BP 138/83; TEMP 98.8
== END 2019-08-16 09:54 | disposition home or self-care (01) ==
LOC: ONC/OP 08:12
PROVIDERS: ATTEND Internal Medicine Rheumatology
DX: M05.79 Rheumatoid arthritis with rheumatoid factor of multiple sites without organ or systems involvement (principal); Z88.2 Allergy status to sulfonamides; Z88.5 Allergy status to narcotic agent; Z88.7 Allergy status to serum and vaccine
CPT/HCPCS: 96413; J0129; J3490

== ENCOUNTER 2020-07-22 09:02 | Outpatient (CLI) | payer MEDICARE | END 2020-07-22 09:03 | disposition home or self-care (01) | LOC: BICRAD 09:02 | PROVIDERS: ATTEND Family Medicine | DX: M25.512 Pain in left shoulder (principal); M25.561 Pain in right knee; M17.11 Unilateral primary osteoarthritis, right knee; M25.461 Effusion, right knee ==

== ENCOUNTER 2020-08-05 17:28 | Inpatient (IN) | payer MEDICARE ==
[2020-08-05 18:56] LABS: Hemoglobin 12.2 g/dL (14.0-18.0); Mean Corpuscular HGB CONC 33.6 g/dL (32.0-36.0); Mean Corpuscular Hemoglobin 33.5 pg (27.0-31.0); Mean Corpuscular Volume 99.8 fL (78.0-98.0); Platelet Count 286 thou/uL (130-400); RBC Distribution Width 17.4 % (11.5-14.5); Red Blood Cell (RBC) Count 3.65 mill/uL (4.70-6.10); White Blood Cell (WBC) Count 11.5 thou/uL (4.8-10.8)
[2020-08-05] MEDS ORDERED: Diltiazem 125 MG/25 ML ONE ×2 (18:58→19:24)
[2020-08-05 19:08] LABS: Anisocytosis SLIGHT = 6-15 cells (100X) (0-5/hpf); Band 5 % (5-11); Eosinophils 2 % (0-10); Lymphocytes 10 % (21-51); MDiff Complete? YES; Monocytes 16 % (0-10); Neutrophil 66 % (42-75); Platelet Morphology Comment Appears Adequate; Polychromasia SLIGHT = 2-3 cells (100X) (0-2/hpf)
[2020-08-05 19:37] LABS: CKMB 1.3 ng/mL (0-6.6)
[2020-08-05] MEDS ORDERED: Metoprolol Tartrate 5 MG/5 ML VIAL ONE (19:58)
[2020-08-05 19:59] LABS: Phosphorus 3.2 mg/dL (2.3-4.7)
[2020-08-05 20:38] LABS: Cocaine Metabolite Screen Not Detected (NotDetected); Medtox Reader # READER 4; Phencyclidine (PCP) Not Detected (NotDetected); THC/Cannabinoid Screen Not Detected (NotDetected)
[2020-08-05 20:39] LABS: Amphetamine Not Detected (NotDetected); Barbiturates Screen Not Detected (NotDetected); Benzodiazepine Screen Not Detected (NotDetected); Medtox Control Line Valid? VALID (VALID); Methadone Not Detected (NotDetected); Methamphetamine Not Detected (NotDetected); Opiate Screen Not Detected (NotDetected); Oxycodone Screen Not Detected (NotDetected); Tricyclic Screen Not Detected (NotDetected)
[2020-08-05 22:01] LABS: SARS-CoV-2 NAA Rapid Test Not Detected (NotDetected)
[2020-08-05 22:57] LABS: Albumin 2.5 g/dL (3.5-5.0)
[2020-08-05 22:58] LABS: Chloride 105 mmol/L (98-107); Potassium 4.4 mmol/L (3.5-5.1); Sodium 134 mmol/L (136-145)
[2020-08-05 22:59] LABS: Calcium 7.6 mg/dL (7.8-10.44); Glucose 95 mg/dL (70-105)
[2020-08-05 23:00] LABS: Globulin 3.7 g/dL (2.4-3.5); Protein, Total 6.2 g/dL (6.0-8.3)
[2020-08-05] MEDS ORDERED: HYDROcodone/Acetaminophen 5/325 mg Tablet PO SCH (23:00)
[2020-08-05] MEDS ORDERED: Magnesium 2 GM/50 ML 2 GM in Premix Bag 1 BAG IVPB SCH (23:00)
[2020-08-05 23:01] LABS: Anion Gap 17 mmol/L (10-20); Bilirubin, Total 0.5 mg/dL (0.2-1.2); Carbon Dioxide 16 mmol/L (22-29)
[2020-08-05 23:02] LABS: Alkaline Phosphatase 176 U/L (40-110)
[2020-08-05 23:03] LABS: Calc. Creatinine Clearance 0 mL/min (70-130)
[2020-08-05 23:04] LABS: BUN (Urea Nitrogen) 35 mg/dL (8.4-25.7)
[2020-08-05 23:05] LABS: ALT (SGPT) 14 U/L (8-55); AST (SGOT) 24 U/L (5-34)
[2020-08-05] MEDS ORDERED: Ipratropium Oral Inhaler INH PRN (23:12)
[2020-08-05 23:15] LABS: Troponin I 0.088 ng/mL (< 0.028)
[2020-08-05 23:26] VITALS: BMI 22.9
[2020-08-06] MEDS ORDERED: Dronedarone HCl 400 MG TAB PO SCH (00:15)
[2020-08-06] MEDS ORDERED: Acetaminophen 325 MG TAB PO PRN (00:56)
[2020-08-06] MEDS ORDERED: Diazepam 5 MG TAB PO PRN (01:06)
[2020-08-06] MEDS ORDERED: predniSONE 1 MG TAB PO SCH ×2 (01:15→09:00)
[2020-08-06] MEDS ORDERED: Diazepam 5 MG TAB PO SCH (01:15)
[2020-08-06] MEDS ORDERED: Thiamine HCl 200 MG/2 ML VIAL IM SCH (01:15)
[2020-08-06] MEDS ORDERED: Sodium Bicarb 50 MEQ/50 ML Abboject 8.4% SYRINGE IVP SCH (01:45)
[2020-08-06 01:58] LABS: Anion Gap 16 mmol/L (10-20); BUN (Urea Nitrogen) 35 mg/dL (8.4-25.7); Calc. Creatinine Clearance 53 mL/min (70-130); Calcium 7.5 mg/dL (7.8-10.44); Carbon Dioxide 16 mmol/L (22-29); Chloride 104 mmol/L (98-107); Glucose 115 mg/dL (70-105); Potassium 3.6 mmol/L (3.5-5.1); Sodium 132 mmol/L (136-145)
[2020-08-06 02:01] LABS: Hemoglobin 9.9 g/dL (14.0-18.0); Mean Corpuscular HGB CONC 33.5 g/dL (32.0-36.0); Mean Corpuscular Hemoglobin 33.6 pg (27.0-31.0); Mean Platelet Volume 7.6 fL (7.4-10.4); Platelet Count 225 thou/uL (130-400); RBC Distribution Width 17.2 % (11.5-14.5); Red Blood Cell (RBC) Count 2.94 mill/uL (4.70-6.10); White Blood Cell (WBC) Count 8.1 thou/uL (4.8-10.8)
[2020-08-06] MEDS: Sodium Chloride 0.9% 1,000 ML IV SCH ×2 (02:14→16:39)
[2020-08-06 02:28] LABS: Eosinophils 1 % (0-10); Lymphocytes 2 % (21-51); MDiff Complete? YES; Metamyelocyte 1 % (0-0); Monocytes 5 % (0-10); Neutrophil 91 % (42-75); Nucleated RBC 1 % (0); Platelet Morphology Comment Appears Adequate
[2020-08-06 02:30] LABS: Troponin I 0.144 ng/mL (< 0.028)
[2020-08-06 07:49] LABS: Bacteria/HPF 2+ HPF (None Seen); Bilirubin Negative (Negative); Blood, Urine 1+ (Negative); Clarity Turbid (Clear); Glucose, Urine (Dipstick) Normal (Negative); Ketone, Urine Negative (Negative); Leukocyte 500 Leu/uL (Negative); Nitrite Negative (Negative); Protein, Urine (Dipstick) 50 mg/dL (Neg-Trace); Specific Gravity, Urine 1.016 (1.002-1.036); Squamous Epithelial 0-3 HPF (0-3); Urobilinogen Normal mg/dL (Less than 2); WBC/HPF Greater than 50 HPF (0-3); pH, Urine 5.5 (5.0-9.0)
[2020-08-06 07:52] LABS: Urine Culture Reflex Yes Yes
[2020-08-06] MEDS ORDERED: Famotidine 20 MG TAB PO SCH (09:00)
[2020-08-06] MEDS ORDERED: Colchicine 0.6 MG TAB PO SCH (09:36)
[2020-08-06] MEDS: HYDROcodone/Acetaminophen 5/325 mg Tablet PO PRN ×2 (10:42→20:52)
[2020-08-06] MEDS: Multivitamin W/ Minerals 1 TAB PO SCH (10:43)
[2020-08-06] MEDS: Dronedarone HCl 400 MG TAB PO SCH ×2 (10:43→20:47)
[2020-08-06] MEDS: Folic Acid 1 MG TAB PO SCH (10:43)
[2020-08-06] MEDS: methylPREDNISolone Sod Succ 40 MG VIAL IVP SCH ×3 (12:33→23:44)
[2020-08-06] MEDS: Mometasone 200 MCG/Formoterol 5 MCG 120 PUFF INHALER INH SCH (19:06)
[2020-08-06] MEDS: Enoxaparin Sodium 40 MG/0.4 ML SYRINGE SC SCH (20:46)
[2020-08-06] MEDS: Famotidine 20 MG TAB PO SCH (20:47)
[2020-08-06] MEDS: Colchicine 0.3 MG TAB PO SCH (20:48)
[2020-08-07] MEDS ORDERED: Diazepam 5 MG TAB PO PRN (04:00)
[2020-08-07 04:03] LABS: Band 6 % (5-11); Hemoglobin 9.2 g/dL (14.0-18.0); Hypochromia SLIGHT = 6-15 cells (100X) (0-5/hpf); Lymphocytes 1 % (21-51); MDiff Complete? YES; Mean Corpuscular HGB CONC 32.4 g/dL (32.0-36.0); Mean Corpuscular Hemoglobin 32.4 pg (27.0-31.0); Mean Platelet Volume 7.3 fL (7.4-10.4); Monocytes 4 % (0-10); Neutrophil 89 % (42-75); Platelet Count 242 thou/uL (130-400); Platelet Morphology Comment Appears Adequate; RBC Distribution Width 17.2 % (11.5-14.5); Red Blood Cell (RBC) Count 2.84 mill/uL (4.70-6.10); White Blood Cell (WBC) Count 11.8 thou/uL (4.8-10.8)
[2020-08-07 04:04] LABS: Anion Gap 15 mmol/L (10-20); BUN (Urea Nitrogen) 29 mg/dL (8.4-25.7); Calc. Creatinine Clearance 86 mL/min (70-130); Carbon Dioxide 16 mmol/L (22-29); Chloride 110 mmol/L (98-107); Glucose 137 mg/dL (70-105); Iron Less than 8 ug/dL (65-175); Iron Binding Capacity, Total 143 mcg/dL (261-462); Potassium 3.6 mmol/L (3.5-5.1); Sodium 137 mmol/L (136-145)
[2020-08-07] MEDS: methylPREDNISolone Sod Succ 40 MG VIAL IVP SCH ×3 (06:34→20:56)
[2020-08-07] MEDS: Sodium Chloride 0.9% 1,000 ML IV SCH ×3 (06:34→20:56)
[2020-08-07] MEDS: Mometasone 200 MCG/Formoterol 5 MCG 120 PUFF INHALER INH SCH ×2 (08:27→20:43)
[2020-08-07] MEDS ORDERED: Potassium Chloride 20 MEQ TAB PO SCH (08:45)
[2020-08-07] MEDS ORDERED: Enoxaparin Sodium 40 MG/0.4 ML SYRINGE SC SCH (09:00)
[2020-08-07] MEDS ORDERED: Iron, Sodium Ferric Gluconate 250 MG in Sodium Chloride 0.9% 100 ML IVPB SCH (09:15)
[2020-08-07] MEDS: Enoxaparin Sodium 40 MG/0.4 ML SYRINGE SC SCH ×2 (09:25→20:57)
[2020-08-07] MEDS: Magnesium Oxide 400 MG TAB PO SCH (09:26)
[2020-08-07] MEDS: Thiamine 100 MG TAB PO SCH (09:26)
[2020-08-07] MEDS: Folic Acid 1 MG TAB PO SCH (09:26)
[2020-08-07] MEDS: Colchicine 0.3 MG TAB PO SCH ×2 (09:26→20:57)
[2020-08-07] MEDS: Famotidine 20 MG TAB PO SCH ×2 (09:26→20:58)
[2020-08-07] MEDS: Multivitamin W/ Minerals 1 TAB PO SCH (09:26)
[2020-08-07] MEDS: Dronedarone HCl 400 MG TAB PO SCH ×2 (09:26→20:58)
[2020-08-07] MEDS: HYDROcodone/Acetaminophen 5/325 mg Tablet PO PRN ×2 (09:32→21:04)
[2020-08-07] MEDS: Lidocaine 5% Patch TD SCH (16:18)
[2020-08-08] MEDS: Transdermal Patch Removal TOP SCH (02:30)
[2020-08-08 03:48] LABS: Hemoglobin 10.3 g/dL (14.0-18.0); Mean Corpuscular HGB CONC 33.4 g/dL (32.0-36.0); Mean Corpuscular Hemoglobin 33.5 pg (27.0-31.0); Mean Platelet Volume 7.4 fL (7.4-10.4); Platelet Count 227 thou/uL (130-400); RBC Distribution Width 17.2 % (11.5-14.5); Red Blood Cell (RBC) Count 3.06 mill/uL (4.70-6.10); White Blood Cell (WBC) Count 11.2 thou/uL (4.8-10.8)
[2020-08-08 04:01] LABS: Anion Gap 13 mmol/L (10-20); BUN (Urea Nitrogen) 22 mg/dL (8.4-25.7); Calc. Creatinine Clearance 106 mL/min (70-130); Calcium 7.3 mg/dL (7.8-10.44); Carbon Dioxide 17 mmol/L (22-29); Chloride 110 mmol/L (98-107); Glucose 137 mg/dL (70-105); Potassium 3.4 mmol/L (3.5-5.1); Sodium 137 mmol/L (136-145)
[2020-08-08 04:10] LABS: MDiff Complete? YES; Monocytes 3 % (0-10); Neutrophil 97 % (42-75); Platelet Morphology Comment Appears Adequate
[2020-08-08] MEDS: Mometasone 200 MCG/Formoterol 5 MCG 120 PUFF INHALER INH SCH ×2 (07:00→19:15)
[2020-08-08] MEDS ORDERED: Iron, Sodium Ferric Gluconate 250 MG in Sodium Chloride 0.9% 100 ML IVPB SCH (09:45)
[2020-08-08] MEDS ORDERED: Potassium Chloride 20 MEQ TAB PO SCH (09:45)
[2020-08-08] MEDS: Colchicine 0.3 MG TAB PO SCH ×2 (10:23→21:39)
[2020-08-08] MEDS: Enoxaparin Sodium 40 MG/0.4 ML SYRINGE SC SCH ×2 (10:23→21:37)
[2020-08-08] MEDS: Magnesium Oxide 400 MG TAB PO SCH (10:23)
[2020-08-08] MEDS: Dronedarone HCl 400 MG TAB PO SCH ×2 (10:24→21:38)
[2020-08-08] MEDS: Thiamine 100 MG TAB PO SCH (10:24)
[2020-08-08] MEDS: Multivitamin W/ Minerals 1 TAB PO SCH (10:24)
[2020-08-08] MEDS: Famotidine 20 MG TAB PO SCH ×2 (10:24→21:38)
[2020-08-08] MEDS: HYDROcodone/Acetaminophen 5/325 mg Tablet PO PRN ×2 (10:24→21:38)
[2020-08-08] MEDS: Folic Acid 1 MG TAB PO SCH (10:25)
[2020-08-08] MEDS: Sodium Chloride 0.9% 1,000 ML IV SCH (10:45)
[2020-08-08] MEDS: methylPREDNISolone Sod Succ 40 MG VIAL IVP SCH (10:54)
[2020-08-08] MEDS: Lidocaine 5% Patch TD SCH (14:44)
[2020-08-08] MEDS ORDERED: Magnesium Sulfate 3 GM in Sodium Chloride 0.9% 100 ML IVPB SCH (17:45)
[2020-08-08] MEDS ORDERED: Loratadine 10 MG TAB PO SCH (23:00)
[2020-08-08] MEDS: Benzonatate 100 MG CAP PO PRN (23:20)
[2020-08-09] MEDS: Transdermal Patch Removal TOP SCH (03:46)
[2020-08-09 04:43] LABS: Anion Gap 13 mmol/L (10-20); BUN (Urea Nitrogen) 16 mg/dL (8.4-25.7); Calc. Creatinine Clearance 120 mL/min (70-130); Calcium 7.7 mg/dL (7.8-10.44); Carbon Dioxide 18 mmol/L (22-29); Chloride 110 mmol/L (98-107); Glucose 89 mg/dL (70-105); Potassium 3.9 mmol/L (3.5-5.1); Sodium 137 mmol/L (136-145)
[2020-08-09] MEDS: Multivitamin W/ Minerals 1 TAB PO SCH (08:53)
[2020-08-09] MEDS: Dronedarone HCl 400 MG TAB PO SCH ×2 (08:53→21:00)
[2020-08-09] MEDS: predniSONE 20 MG TAB PO SCH (08:53)
[2020-08-09] MEDS: Folic Acid 1 MG TAB PO SCH (08:53)
[2020-08-09] MEDS: HYDROcodone/Acetaminophen 5/325 mg Tablet PO PRN ×3 (08:53→21:20)
[2020-08-09] MEDS: Famotidine 20 MG TAB PO SCH ×2 (08:53→21:04)
[2020-08-09] MEDS: Thiamine 100 MG TAB PO SCH (08:53)
[2020-08-09] MEDS: Magnesium Oxide 400 MG TAB PO SCH (08:53)
[2020-08-09] MEDS: Enoxaparin Sodium 40 MG/0.4 ML SYRINGE SC SCH ×2 (08:55→21:00)
[2020-08-09] MEDS ORDERED: Nitrofurantoin Monohyd/M-Cryst 100 MG CAP PO SCH (09:30)
[2020-08-09] MEDS: Benzonatate 100 MG CAP PO PRN (09:59)
[2020-08-09] MEDS: Loratadine 10 MG TAB PO PRN (09:59)
[2020-08-09] MEDS: Colchicine 0.3 MG TAB PO SCH ×2 (09:59→21:00)
[2020-08-09] MEDS: Mometasone 200 MCG/Formoterol 5 MCG 120 PUFF INHALER INH SCH ×2 (11:01→19:13)
[2020-08-09] MEDS: Sodium Chloride 0.9% 1,000 ML IV SCH (14:24)
[2020-08-09] MEDS: Lidocaine 5% Patch TD SCH (14:48)
[2020-08-09] MEDS: Nitrofurantoin Monohyd/M-Cryst 100 MG CAP PO SCH (21:00)
[2020-08-10] MEDS: Transdermal Patch Removal TOP SCH (02:58)
[2020-08-10] MEDS: HYDROcodone/Acetaminophen 5/325 mg Tablet PO PRN ×2 (04:52→12:41)
[2020-08-10] MEDS: Mometasone 200 MCG/Formoterol 5 MCG 120 PUFF INHALER INH SCH (07:09)
[2020-08-10] MEDS: Enoxaparin Sodium 40 MG/0.4 ML SYRINGE SC SCH (08:19)
[2020-08-10] MEDS: Folic Acid 1 MG TAB PO SCH (08:20)
[2020-08-10] MEDS: Famotidine 20 MG TAB PO SCH (08:20)
[2020-08-10] MEDS: Multivitamin W/ Minerals 1 TAB PO SCH (08:20)
[2020-08-10] MEDS: Nitrofurantoin Monohyd/M-Cryst 100 MG CAP PO SCH (08:20)
[2020-08-10] MEDS: Magnesium Oxide 400 MG TAB PO SCH (08:20)
[2020-08-10] MEDS: Thiamine 100 MG TAB PO SCH (08:20)
[2020-08-10] MEDS: Benzonatate 100 MG CAP PO PRN (08:20)
[2020-08-10] MEDS: Dronedarone HCl 400 MG TAB PO SCH (08:20)
[2020-08-10] MEDS: predniSONE 20 MG TAB PO SCH (08:21)
[2020-08-10] MEDS: Loratadine 10 MG TAB PO PRN (08:21)
[2020-08-10] MEDS: Colchicine 0.3 MG TAB PO SCH (08:21)
[2020-08-10] MEDS ORDERED: Iron, Sodium Ferric Gluconate 250 MG in Sodium Chloride 0.9% 100 ML IVPB SCH (11:45)
[2020-08-10] MEDS: Lidocaine 5% Patch TD SCH (14:27)
[2020-08-10 16:15] VITALS: BP 129/74; TEMP 98.1
[2020-08-10] MEDS ORDERED: Apixaban 5 MG TAB PO SCH (21:00)
== END 2020-08-10 16:48 | disposition home or self-care (01) | DRG 280 ==
LOC: ERS 17:28 → IMCU/EMU 20:17 → 2NO 08-08 13:54
PROVIDERS: ADMIT Internal Medicine; ATTEND Family Medicine
DX: I48.0 Paroxysmal atrial fibrillation (principal); J96.90 Respiratory failure, unspecified, unspecified whether with hypoxia or hypercapnia; I21.A1 Myocardial infarction type 2; S22.39XA Fracture of one rib, unspecified side, initial encounter for closed fracture; J44.1 Chronic obstructive pulmonary disease with (acute) exacerbation; Z20.822 Contact with and (suspected) exposure to COVID-19; N17.9 Acute kidney failure, unspecified; N39.0 Urinary tract infection, site not specified; I47.1 Supraventricular tachycardia; G89.29 Other chronic pain; I10 Essential (primary) hypertension; M06.9 Rheumatoid arthritis, unspecified; R77.8 Other specified abnormalities of plasma proteins; D72.829 Elevated white blood cell count, unspecified; F17.210 Nicotine dependence, cigarettes, uncomplicated; M81.0 Age-related osteoporosis without current pathological fracture; F10.20 Alcohol dependence, uncomplicated; J40 Bronchitis, not specified as acute or chronic; M10.9 Gout, unspecified; D50.9 Iron deficiency anemia, unspecified; E87.5 Hyperkalemia; Z91.81 History of falling; Z85.21 Personal history of malignant neoplasm of larynx; Z90.49 Acquired absence of other specified parts of digestive tract; Z88.5 Allergy status to narcotic agent; Z88.2 Allergy status to sulfonamides; Z88.7 Allergy status to serum and vaccine; Z79.51 Long term (current) use of inhaled steroids; Z79.52 Long term (current) use of systemic steroids; Z79.899 Other long term (current) drug therapy; Z87.891 Personal history of nicotine dependence
CPT/HCPCS: 0240U; 36415; 36416; 71045; 71250; 80048; 80053; 80306; 81001; 82550; 82553; 82607; 82728; 82746; 83540; 83550; 83735; 83880; 84100; 84484; 85025; 87077; 87086; 87186; 93005; 96365; 96366; 96375; 96376; J1650; J2916; J2920; J3411; J3475; J3490; J7512; J7620

== ENCOUNTER 2020-09-03 10:23 | Outpatient (CLI) | payer MEDICARE | END 2020-09-03 10:24 | disposition home or self-care (01) | LOC: BICMAMMO 10:23 | PROVIDERS: ATTEND Internal Medicine Rheumatology | DX: M81.8 Other osteoporosis without current pathological fracture (principal) | CPT/HCPCS: 36415; 77080; 86480 ==

== ENCOUNTER 2020-09-27 09:00 | Outpatient (CLI) | payer MEDICARE | END 2020-09-27 09:01 | disposition home or self-care (01) | LOC: BICRAD 09:00 | PROVIDERS: ATTEND Family Medicine | DX: M54.2 Cervicalgia (principal); M47.812 Spondylosis without myelopathy or radiculopathy, cervical region | CPT/HCPCS: 72040 ==

== ENCOUNTER 2020-11-10 11:53 | Inpatient (IN) | payer MEDICARE ==
[2020-11-11 04:36] VITALS: BMI 24.1
[2020-11-15 11:55] VITALS: BP 124/74; TEMP 98.6
== END 2020-11-15 14:48 | disposition home health service (06) | DRG 871 ==
LOC: ERS 11:53 → ERHOLD 18:04 → IMCU/EMU 11-11 02:20 → 2NO 11-13 15:43
PROVIDERS: ADMIT Family Medicine; ATTEND Internal Medicine
PROC: 5A2204Z Restoration of Cardiac Rhythm, Single (ICD-10-PCS; principal; 2020-11-10)
DX: A41.51 Sepsis due to Escherichia coli [E. coli] (principal); I50.33 Acute on chronic diastolic (congestive) heart failure; N17.9 Acute kidney failure, unspecified; N30.00 Acute cystitis without hematuria; I48.92 Unspecified atrial flutter; I47.1 Supraventricular tachycardia; D64.9 Anemia, unspecified; R29.898 Other symptoms and signs involving the musculoskeletal system; G89.29 Other chronic pain; J44.9 Chronic obstructive pulmonary disease, unspecified; M06.9 Rheumatoid arthritis, unspecified; I48.0 Paroxysmal atrial fibrillation; R73.9 Hyperglycemia, unspecified; R79.89 Other specified abnormal findings of blood chemistry; F10.20 Alcohol dependence, uncomplicated; R29.6 Repeated falls; Z20.822 Contact with and (suspected) exposure to COVID-19; I50.9 Heart failure, unspecified; I11.0 Hypertensive heart disease with heart failure; Z88.5 Allergy status to narcotic agent; Z88.2 Allergy status to sulfonamides; Z88.7 Allergy status to serum and vaccine; Z79.01 Long term (current) use of anticoagulants; Z79.52 Long term (current) use of systemic steroids; Z79.899 Other long term (current) drug therapy; Z92.3 Personal history of irradiation; Z83.3 Family history of diabetes mellitus; Z82.49 Family history of ischemic heart disease and other diseases of the circulatory system; Z85.21 Personal history of malignant neoplasm of larynx; Z90.49 Acquired absence of other specified parts of digestive tract; Z91.14 Patient's other noncompliance with medication regimen; S22.39XD Fracture of one rib, unspecified side, subsequent encounter for fracture with routine healing
CPT/HCPCS: 36415; 36416; 70450; 71275; 80048; 80053; 81003; 81015; 82533; 82553; 83036; 83605; 83735; 83880; 84443; 84484; 85025; 85379; 85610; 85730; 87040; 87077; 87086; 87149; 87186; 92960; 93005; 93010; 93306; 94640; 96365; 96374; 96375; 99152; J0282; J0692; J0696; J1160; J1815; J2250; J3010; J3475; J3490; J7070; J7512; J7620; Q9967; U0002; U0005

== ENCOUNTER 2021-03-28 16:08 | Inpatient (IN) | payer MEDICARE ==
[2021-03-28 16:56] LABS: Mean Corpuscular HGB CONC 32.5 g/dL (32.0-36.0); Mean Corpuscular Hemoglobin 31.2 pg (27.0-31.0); Mean Corpuscular Volume 96.2 fL (78.0-98.0); Mean Platelet Volume 8.1 fL (7.4-10.4); Platelet Count 244 thou/uL (130-400); RBC Distribution Width 15.8 % (11.5-14.5); White Blood Cell (WBC) Count 17.4 thou/uL (4.8-10.8)
[2021-03-28 17:13] LABS: Anisocytosis SLIGHT = 6-15 cells (100X) (0-5/hpf); Band 8 % (5-11); Lymphocytes 4 % (21-51); MDiff Complete? YES; Metamyelocyte 3 % (0-0); Monocytes 1 % (0-10); Myelocyte 2 % (0-0); Neutrophil 82 % (42-75); Platelet Morphology Comment Appears Adequate; Polychromasia SLIGHT = 2-3 cells (100X) (0-2/hpf); Schistocytes SLIGHT = 2-5 cells (100X) (0-1/hpf)
[2021-03-28] MEDS ORDERED: Cefepime 2 GM VIAL ONE (17:31)
[2021-03-28] MEDS ORDERED: VANCOMYCIN 2 GRAM/400 ML BAG 2 GM in Premix Bag 1 BAG IVPB SCH (17:45)
[2021-03-28 17:53] LABS: INR-International Normal Ratio 1.8; PTT 40.8 sec (22.9-36.1)
[2021-03-28 18:04] LABS: ALT (SGPT) 15 U/L (8-55); AST (SGOT) 37 U/L (5-34); Albumin 2.2 g/dL (3.5-5.0); Alkaline Phosphatase 226 U/L (40-110); Anion Gap 17 mmol/L (10-20); BUN (Urea Nitrogen) 27 mg/dL (8.4-25.7); Bilirubin, Total 0.5 mg/dL (0.2-1.2); Calc. Creatinine Clearance 0 mL/min (70-130); Calcium 6.9 mg/dL (7.8-10.44); Carbon Dioxide 22 mmol/L (22-29); Chloride 98 mmol/L (98-107); Globulin 3.7 g/dL (2.4-3.5); Glucose 89 mg/dL (70-105); Protein, Total 5.9 g/dL (6.0-8.3); Sodium 134 mmol/L (136-145)
[2021-03-28 18:06] LABS: Bacteria/HPF 4+ HPF (None Seen); Bilirubin Negative (Negative); Blood, Urine Negative (Negative); Clarity Extra Turbid (Clear); Glucose, Urine (Dipstick) Normal (Negative); Ketone, Urine Negative (Negative); Leukocyte 500 Leu/uL (Negative); Nitrite Negative (Negative); Protein, Urine (Dipstick) 100 mg/dL (Neg-Trace); RBC/HPF 0-3 HPF (0-3); Specific Gravity, Urine 1.017 (1.002-1.036); Urobilinogen 6 mg/dL (Less than 2); WBC/HPF Greater than 50 HPF (0-3)
[2021-03-28 18:25] LABS: Potassium 2.5 mmol/L (3.5-5.1)
[2021-03-28 18:30] LABS: CKMB 3.6 ng/mL (0-6.6)
[2021-03-28] MEDS ORDERED: Potassium Bicarbonate/Cit Ac 25 MEQ TAB ONE (19:13)
[2021-03-28 19:39] LABS: Lactic Acid 1.5 mmol/L (0.5-2.2)
[2021-03-28 19:57] LABS: Critical Call Chem Troponin I RESULT DECREASING; Troponin I 0.513 ng/mL (< 0.028)
[2021-03-28] MEDS ORDERED: Ondansetron ODT 4 MG TAB PO PRN (20:02)
[2021-03-28] MEDS ORDERED: Ondansetron PF 4 MG/2 ML Vial IVP PRN (20:02)
[2021-03-28] MEDS ORDERED: Acetaminophen 650 MG Suppository PR PRN (20:02)
[2021-03-28 20:12] LABS: SARS-CoV-2 NAA Rapid Test Not Detected (NotDetected)
[2021-03-28] MEDS ORDERED: Electrolyte Replacement Protocol 1 EACH FS SCH (20:15)
[2021-03-28 20:56] LABS: Magnesium 1.1 mg/dL (1.6-2.6)
[2021-03-28] MEDS ORDERED: Potassium Chloride 20 MEQ TAB PO SCH (21:00)
[2021-03-28] MEDS ORDERED: Magnesium Sulfate 4 GM in Sodium Chloride 0.9% 250 ML 250 ML IVPB SCH (21:30)
[2021-03-28] MEDS: Acetaminophen 325 MG TAB PO PRN (22:01)
[2021-03-29 00:24] LABS: Troponin I 0.573 ng/mL (< 0.028)
[2021-03-29] MEDS ORDERED: Morphine 4 MG/ML VIAL SLOW IVP PRN (01:24)
[2021-03-29 04:05] LABS: Hemoglobin 8.2 g/dL (14.0-18.0); Mean Corpuscular HGB CONC 32.6 g/dL (32.0-36.0); Mean Corpuscular Hemoglobin 31.4 pg (27.0-31.0); Mean Corpuscular Volume 96.1 fL (78.0-98.0); Mean Platelet Volume 8.1 fL (7.4-10.4); Platelet Count 213 thou/uL (130-400); RBC Distribution Width 15.5 % (11.5-14.5); Red Blood Cell (RBC) Count 2.63 mill/uL (4.70-6.10); White Blood Cell (WBC) Count 13.2 thou/uL (4.8-10.8)
[2021-03-29 04:17] LABS: Anion Gap 15 mmol/L (10-20); BUN (Urea Nitrogen) 30 mg/dL (8.4-25.7); Calc. Creatinine Clearance 65 mL/min (70-130); Calcium 6.7 mg/dL (7.8-10.44); Carbon Dioxide 21 mmol/L (22-29); Chloride 102 mmol/L (98-107); Glucose 136 mg/dL (70-105); Magnesium 2.2 mg/dL (1.6-2.6); Potassium 3.2 mmol/L (3.5-5.1); Sodium 135 mmol/L (136-145)
[2021-03-29 04:23] LABS: Anisocytosis SLIGHT = 6-15 cells (100X) (0-5/hpf); Band 5 % (5-11); Burr Cells SLIGHT = 2-5 cells (100X) (0-1/hpf); Elliptocytes SLIGHT = 2-5 cells (100X) (0-1/hpf); Eosinophils 1 % (0-10); Lymphocytes 3 % (21-51); MDiff Complete? YES; Monocytes 2 % (0-10); Neutrophil 89 % (42-75); Platelet Morphology Comment Appears Adequate; Polychromasia SLIGHT = 2-3 cells (100X) (0-2/hpf); Schistocytes SLIGHT = 2-5 cells (100X) (0-1/hpf); Target Cells SLIGHT = 2-5 cells (100X) (0-1/hpf)
[2021-03-29] MEDS: Cefepime 2 GM in Sodium Chloride 0.9% 100 ML IVPB SCH ×2 (06:02→17:25)
[2021-03-29] MEDS: Lactated Ringer's 1,000 ML IV SCH ×2 (06:02→14:34)
[2021-03-29] MEDS ORDERED: Vancomycin HCl 1.5 GM in Sodium Chloride 0.9% 250 ML 300 ML IVPB SCH (08:00)
[2021-03-29] MEDS ORDERED: Non-Formulary Item 1 EACH (Risedronate Sodium [Risedronate Sodium] 35 MG Tablet) PO SCH (09:00)
[2021-03-29] MEDS ORDERED: Vancomycin 1.5 GRAM/300 ML BAG 1.5 GM in Premix Bag 1 BAG IVPB SCH ×2 (09:45→21:00)
[2021-03-29] MEDS ORDERED: Potassium Chloride 20 MEQ TAB PO SCH (09:45)
[2021-03-29] MEDS: Apixaban 5 MG TAB PO SCH ×2 (09:47→21:10)
[2021-03-29] MEDS: Dronedarone HCl 400 MG TAB PO SCH ×2 (09:48→21:09)
[2021-03-29] MEDS: Hydroxychloroquine Sulfate 200 MG TAB PO SCH ×2 (09:48→21:09)
[2021-03-29] MEDS: Gabapentin 300 MG CAP PO SCH ×3 (09:48→21:10)
[2021-03-29] MEDS: methylPREDNISolone 4 mg Tablet PO SCH (09:48)
[2021-03-29] MEDS: Multivit, Therapeutic 1 TAB PO SCH (09:49)
[2021-03-29] MEDS: Nebivolol HCl 5 MG TAB PO SCH (09:54)
[2021-03-29] MEDS ORDERED: Electrolyte Replacement Protocol FS PRN (10:00)
[2021-03-29 16:14] LABS: Reticulocyte Count 1.4 % (0.5-1.5)
[2021-03-29] MEDS ORDERED: Cefepime 2 GM VIAL ONE (17:12)
[2021-03-30] MEDS: Lactated Ringer's 1,000 ML IV SCH ×2 (05:56→07:18)
[2021-03-30] MEDS: Cefepime 2 GM in Sodium Chloride 0.9% 100 ML IVPB SCH ×2 (05:57→17:40)
[2021-03-30 08:17] LABS: Vancomycin, Trough 54.4 ug/mL
[2021-03-30] MEDS ORDERED: Vancomycin 1.5 GRAM/300 ML BAG 1.5 GM in Premix Bag 1 BAG IVPB SCH (09:00)
[2021-03-30] MEDS: Hydroxychloroquine Sulfate 200 MG TAB PO SCH ×2 (09:56→20:07)
[2021-03-30] MEDS: Apixaban 5 MG TAB PO SCH ×2 (09:56→22:11)
[2021-03-30] MEDS: Dronedarone HCl 400 MG TAB PO SCH ×2 (09:56→20:07)
[2021-03-30] MEDS: Gabapentin 300 MG CAP PO SCH ×3 (09:56→22:10)
[2021-03-30] MEDS: methylPREDNISolone 4 mg Tablet PO SCH (09:56)
[2021-03-30] MEDS: Multivit, Therapeutic 1 TAB PO SCH (09:57)
[2021-03-30] MEDS: Nebivolol HCl 5 MG TAB PO SCH (12:28)
[2021-03-30 14:45] LABS: #Lymphocytes 0.5 thou/uL (1.20-3.40); #Monocytes 0.5 thou/uL (0.11-0.59); %Eosinophils 0.2 % (0.0-10.0); %Lymphocytes 3.4 % (21.0-51.0); %Neutrophils 93.5 % (42.0-75.0); Hemoglobin 6.8 g/dL (14.0-18.0); Mean Corpuscular HGB CONC 30.6 g/dL (32.0-36.0); Mean Corpuscular Hemoglobin 31.2 pg (27.0-31.0); Mean Platelet Volume 8.1 fL (7.4-10.4); Platelet Count 180 thou/uL (130-400); RBC Distribution Width 15.6 % (11.5-14.5); Red Blood Cell (RBC) Count 2.17 mill/uL (4.70-6.10)
[2021-03-30 15:05] LABS: Anion Gap 17 mmol/L (10-20); BUN (Urea Nitrogen) 29 mg/dL (8.4-25.7); Calc. Creatinine Clearance 68 mL/min (70-130); Calcium 7.2 mg/dL (7.8-10.44); Carbon Dioxide 15 mmol/L (22-29); Chloride 102 mmol/L (98-107); Glucose 113 mg/dL (70-105); Potassium 3.8 mmol/L (3.5-5.1); Sodium 130 mmol/L (136-145)
[2021-03-30] MEDS ORDERED: methylPREDNISolone 4 mg Tablet PO SCH (17:00)
[2021-03-30] MEDS: guaiFENesin ER 600 MG TAB PO SCH (20:11)
[2021-03-31 04:06] LABS: Hemoglobin 7.7 g/dL (14.0-18.0); Mean Corpuscular HGB CONC 32.4 g/dL (32.0-36.0); Mean Corpuscular Hemoglobin 31.3 pg (27.0-31.0); Mean Corpuscular Volume 96.5 fL (78.0-98.0); Mean Platelet Volume 8.2 fL (7.4-10.4); Platelet Count 179 thou/uL (130-400); RBC Distribution Width 16.1 % (11.5-14.5); Red Blood Cell (RBC) Count 2.47 mill/uL (4.70-6.10); White Blood Cell (WBC) Count 15.5 thou/uL (4.8-10.8)
[2021-03-31 04:07] LABS: Band 10 % (5-11); Hypochromia SLIGHT = 6-15 cells (100X) (0-5/hpf); Lymphocytes 1 % (21-51); Monocytes 15 % (0-10); Neutrophil 74 % (42-75); Platelet Morphology Comment Appears Adequate
[2021-03-31 04:09] LABS: Anion Gap 17 mmol/L (10-20); BUN (Urea Nitrogen) 27 mg/dL (8.4-25.7); Calc. Creatinine Clearance 67 mL/min (70-130); Calcium 7.7 mg/dL (7.8-10.44); Carbon Dioxide 15 mmol/L (22-29); Chloride 101 mmol/L (98-107); Glucose 164 mg/dL (70-105); Potassium 3.7 mmol/L (3.5-5.1); Sodium 129 mmol/L (136-145)
[2021-03-31 04:10] LABS: MDiff Complete? YES
[2021-03-31] MEDS: Cefepime 2 GM in Sodium Chloride 0.9% 100 ML IVPB SCH ×2 (06:18→17:49)
[2021-03-31] MEDS: Dronedarone HCl 400 MG TAB PO SCH ×2 (09:13→20:25)
[2021-03-31] MEDS: Gabapentin 300 MG CAP PO SCH ×3 (09:13→20:25)
[2021-03-31] MEDS: Apixaban 5 MG TAB PO SCH ×2 (09:13→20:24)
[2021-03-31] MEDS: Hydroxychloroquine Sulfate 200 MG TAB PO SCH ×2 (09:13→20:25)
[2021-03-31] MEDS: Nebivolol HCl 5 MG TAB PO SCH (09:13)
[2021-03-31] MEDS: guaiFENesin ER 600 MG TAB PO SCH ×3 (09:13→23:00)
[2021-03-31] MEDS: Multivit, Therapeutic 1 TAB PO SCH (09:13)
[2021-03-31 09:16] LABS: Vancomycin, Trough 33.6 ug/mL
[2021-03-31] MEDS ORDERED: Loperamide HCl 1 MG/7.5 ML UDCUP PO PRN (09:19)
[2021-03-31] MEDS: Mometasone 200 MCG/Formoterol 5 MCG 120 PUFF INHALER INH SCH (18:52)
[2021-04-01 03:40] LABS: Anion Gap 15 mmol/L (10-20); BUN (Urea Nitrogen) 34 mg/dL (8.4-25.7); Calc. Creatinine Clearance 55 mL/min (70-130); Calcium 8.3 mg/dL (7.8-10.44); Carbon Dioxide 17 mmol/L (22-29); Chloride 104 mmol/L (98-107); Glucose 118 mg/dL (70-105); Potassium 3.9 mmol/L (3.5-5.1); Sodium 132 mmol/L (136-145); Vancomycin, Random 28.3 ug/mL (See Comment)
[2021-04-01 03:49] LABS: Band 5 % (5-11); Hemoglobin 7.8 g/dL (14.0-18.0); Lymphocytes 4 % (21-51); MDiff Complete? YES; Mean Corpuscular HGB CONC 32.4 g/dL (32.0-36.0); Mean Corpuscular Hemoglobin 30.8 pg (27.0-31.0); Mean Platelet Volume 8.2 fL (7.4-10.4); Metamyelocyte 1 % (0-0); Monocytes 9 % (0-10); Neutrophil 81 % (42-75); Platelet Count 195 thou/uL (130-400); Platelet Morphology Comment Appears Adequate; RBC Distribution Width 16.2 % (11.5-14.5); Red Blood Cell (RBC) Count 2.53 mill/uL (4.70-6.10); White Blood Cell (WBC) Count 12.7 thou/uL (4.8-10.8)
[2021-04-01] MEDS: Cefepime 2 GM in Sodium Chloride 0.9% 100 ML IVPB SCH ×2 (06:49→19:11)
[2021-04-01] MEDS: guaiFENesin ER 600 MG TAB PO SCH ×3 (06:55→20:29)
[2021-04-01] MEDS: Mometasone 200 MCG/Formoterol 5 MCG 120 PUFF INHALER INH SCH ×2 (07:51→18:30)
[2021-04-01 08:38] VITALS: BMI 23.2
[2021-04-01] MEDS: Apixaban 5 MG TAB PO SCH ×2 (09:10→20:28)
[2021-04-01] MEDS: Gabapentin 300 MG CAP PO SCH ×3 (09:11→20:28)
[2021-04-01] MEDS: Multivit, Therapeutic 1 TAB PO SCH (09:11)
[2021-04-01] MEDS: predniSONE 20 MG TAB PO SCH (09:11)
[2021-04-01] MEDS: Nebivolol HCl 5 MG TAB PO SCH (09:11)
[2021-04-01] MEDS: Dronedarone HCl 400 MG TAB PO SCH ×2 (09:11→20:28)
[2021-04-01] MEDS: Hydroxychloroquine Sulfate 200 MG TAB PO SCH ×2 (09:11→20:29)
[2021-04-01 13:14] LABS: A/G Ratio 0.4 (0.7-1.7); Albumin 1.3 g/dL (2.9-4.4); Alpha 1 0.5 g/dL (0.0-0.4); Alpha 2 1.1 g/dL (0.4-1.0); Beta 0.7 g/dL (0.7-1.3); Gamma 0.5 g/dL (0.4-1.8); Globulin, Total 2.9 g/dL (2.2-3.9); M-Spike Not Observed g/dL (Not Observed)
[2021-04-02 04:24] LABS: #Basophils 0.1 thou/uL (0.0-0.2); #Lymphocytes 0.2 thou/uL (1.20-3.40); #Monocytes 0.3 thou/uL (0.11-0.59); #Neutrophils 8.8 thou/uL (1.40-6.50); %Basophils 0.9 % (0.0-1.0); %Eosinophils 0.3 % (0.0-10.0); %Neutrophils 93.8 % (42.0-75.0); Hemoglobin 8.1 g/dL (14.0-18.0); Mean Corpuscular HGB CONC 32.8 g/dL (32.0-36.0); Mean Corpuscular Volume 94.4 fL (78.0-98.0); Mean Platelet Volume 8.2 fL (7.4-10.4); Platelet Count 205 thou/uL (130-400); RBC Distribution Width 16.1 % (11.5-14.5); Red Blood Cell (RBC) Count 2.61 mill/uL (4.70-6.10); White Blood Cell (WBC) Count 9.4 thou/uL (4.8-10.8)
[2021-04-02 04:44] LABS: Anion Gap 15 mmol/L (10-20); BUN (Urea Nitrogen) 43 mg/dL (8.4-25.7); Calc. Creatinine Clearance 47 mL/min (70-130); Calcium 7.8 mg/dL (7.8-10.44); Carbon Dioxide 17 mmol/L (22-29); Chloride 103 mmol/L (98-107); Glucose 96 mg/dL (70-105); Potassium 3.6 mmol/L (3.5-5.1); Sodium 131 mmol/L (136-145)
[2021-04-02 04:46] LABS: Vancomycin, Random 22.9 ug/mL (See Comment)
[2021-04-02] MEDS: guaiFENesin ER 600 MG TAB PO SCH ×3 (05:58→21:14)
[2021-04-02] MEDS: Cefepime 2 GM in Sodium Chloride 0.9% 100 ML IVPB SCH (05:58)
[2021-04-02] MEDS: Mometasone 200 MCG/Formoterol 5 MCG 120 PUFF INHALER INH SCH ×2 (07:54→19:00)
[2021-04-02] MEDS: predniSONE 20 MG TAB PO SCH (08:40)
[2021-04-02] MEDS: Dronedarone HCl 400 MG TAB PO SCH ×2 (08:41→21:14)
[2021-04-02] MEDS: Apixaban 5 MG TAB PO SCH ×2 (08:41→21:14)
[2021-04-02] MEDS: Gabapentin 300 MG CAP PO SCH ×3 (08:42→21:14)
[2021-04-02] MEDS: Nebivolol HCl 5 MG TAB PO SCH (08:43)
[2021-04-02] MEDS: Hydroxychloroquine Sulfate 200 MG TAB PO SCH ×2 (08:43→21:15)
[2021-04-02] MEDS: Multivit, Therapeutic 1 TAB PO SCH (08:43)
[2021-04-02] MEDS: Acetaminophen 325 MG TAB PO PRN (08:43)
[2021-04-02] MEDS ORDERED: Amoxicillin/Potassium Clav 875 MG TAB PO SCH (21:00)
[2021-04-03 05:08] LABS: Anion Gap 15 mmol/L (10-20); BUN (Urea Nitrogen) 47 mg/dL (8.4-25.7); Calc. Creatinine Clearance 50 mL/min (70-130); Calcium 7.8 mg/dL (7.8-10.44); Carbon Dioxide 16 mmol/L (22-29); Chloride 104 mmol/L (98-107); Glucose 72 mg/dL (70-105); Potassium 3.7 mmol/L (3.5-5.1); Sodium 131 mmol/L (136-145)
[2021-04-03 05:09] LABS: Band 6 % (5-11); Hemoglobin 7.4 g/dL (14.0-18.0); Hypochromia SLIGHT = 6-15 cells (100X) (0-5/hpf); Lymphocytes 4 % (21-51); MDiff Complete? YES; Mean Corpuscular HGB CONC 32.8 g/dL (32.0-36.0); Mean Corpuscular Hemoglobin 30.9 pg (27.0-31.0); Mean Corpuscular Volume 94.4 fL (78.0-98.0); Mean Platelet Volume 8.5 fL (7.4-10.4); Monocytes 6 % (0-10); Neutrophil 84 % (42-75); Platelet Count 212 thou/uL (130-400); Platelet Morphology Comment Appears Adequate; White Blood Cell (WBC) Count 11.8 thou/uL (4.8-10.8)
[2021-04-03] MEDS: guaiFENesin ER 600 MG TAB PO SCH ×3 (06:21→20:53)
[2021-04-03] MEDS: Mometasone 200 MCG/Formoterol 5 MCG 120 PUFF INHALER INH SCH ×2 (08:02→18:36)
[2021-04-03] MEDS: Amoxicillin/Potassium Clav 500 MG TAB PO SCH ×2 (09:00→20:54)
[2021-04-03] MEDS: predniSONE 20 MG TAB PO SCH (09:00)
[2021-04-03] MEDS: Apixaban 5 MG TAB PO SCH ×2 (09:01→20:53)
[2021-04-03] MEDS: Dronedarone HCl 400 MG TAB PO SCH ×2 (09:01→20:53)
[2021-04-03] MEDS: Gabapentin 300 MG CAP PO SCH ×3 (09:01→20:53)
[2021-04-03] MEDS: Hydroxychloroquine Sulfate 200 MG TAB PO SCH ×2 (09:02→20:53)
[2021-04-03] MEDS: Multivit, Therapeutic 1 TAB PO SCH (09:02)
[2021-04-03] MEDS: Nebivolol HCl 5 MG TAB PO SCH (09:02)
[2021-04-03] MEDS ORDERED: Lorazepam 2 MG/ML VIAL SLOW IVP PRN (10:08)
[2021-04-03] MEDS ORDERED: Dextrose 5% in Water 1,000 ML IV SCH (10:15)
[2021-04-03] MEDS ORDERED: Dextrose 50% Abboject 50 ML SYRINGE SLOW IVP SCH (10:18)
[2021-04-03] MEDS ORDERED: Dextrose 50% Abboject 50 ML SYRINGE ONE (10:28)
[2021-04-03] MEDS: Multivitamins, Adult 10 ML, Folic Acid 1 MG in Dextrose 5 %-0.45 % NaCl 1,000 ML IV SCH (11:40)
[2021-04-03] MEDS: Thiamine HCl 200 MG/2 ML VIAL SLOW IVP SCH (11:41)
[2021-04-04] MEDS: guaiFENesin ER 600 MG TAB PO SCH ×2 (06:22→14:49)
[2021-04-04] MEDS ORDERED: Furosemide 20 MG/2 ML VIAL SLOW IVP SCH (08:00)
[2021-04-04] MEDS ORDERED: predniSONE 5 MG TAB PO SCH (08:00)
[2021-04-04] MEDS: Mometasone 200 MCG/Formoterol 5 MCG 120 PUFF INHALER INH SCH (08:02)
[2021-04-04] MEDS: Dronedarone HCl 400 MG TAB PO SCH (09:13)
[2021-04-04] MEDS: Nebivolol HCl 5 MG TAB PO SCH (09:13)
[2021-04-04] MEDS: Gabapentin 300 MG CAP PO SCH ×2 (09:14→14:49)
[2021-04-04] MEDS: Amoxicillin/Potassium Clav 500 MG TAB PO SCH (09:15)
[2021-04-04] MEDS: Hydroxychloroquine Sulfate 200 MG TAB PO SCH (09:15)
[2021-04-04 12:02] VITALS: BP 144/73; TEMP 98.2
[2021-04-04] MEDS: Multivitamins, Adult 10 ML, Folic Acid 1 MG in Dextrose 5 %-0.45 % NaCl 1,000 ML IV SCH (12:06)
[2021-04-04] MEDS: Thiamine HCl 200 MG/2 ML VIAL SLOW IVP SCH ×2 (14:48→14:51)
[2021-04-04 15:53] LABS: Hemoglobin 9.3 g/dL (14.0-18.0); Mean Corpuscular Hemoglobin 31.4 pg (27.0-31.0); Mean Corpuscular Volume 95.2 fL (78.0-98.0); Mean Platelet Volume 9.9 fL (7.4-10.4); Platelet Count 132 thou/uL (130-400); RBC Distribution Width 16.4 % (11.5-14.5); Red Blood Cell (RBC) Count 2.96 mill/uL (4.70-6.10); White Blood Cell (WBC) Count 15.5 thou/uL (4.8-10.8)
[2021-04-04 16:11] LABS: Band 5 % (5-11); Burr Cells SLIGHT = 2-5 cells (100X) (0-1/hpf); Eosinophils 3 % (0-10); Lymphocytes 4 % (21-51); MDiff Complete? YES; Metamyelocyte 2 % (0-0); Monocytes 2 % (0-10); Myelocyte 4 % (0-0); Neutrophil 80 % (42-75); Platelet Morphology Comment Appears Adequate; Polychromasia SLIGHT = 2-3 cells (100X) (0-2/hpf)
[2021-04-04] MEDS ORDERED: Apixaban 5 MG TAB PO SCH (21:00)
[2021-04-05] MEDS ORDERED: Furosemide 20 MG/2 ML VIAL SLOW IVP SCH (09:00)
== END 2021-04-04 16:40 | DRG 871 ==
LOC: ERS 16:08 → IMCU/EMU 19:12 → 2NO 04-01 23:19
PROVIDERS: ADMIT Internal Medicine; ATTEND Internal Medicine
PROC: 30233N1 Transfusion of Nonautologous Red Blood Cells into Peripheral Vein, Percutaneous Approach (ICD-10-PCS; principal; 2021-03-30)
DX: A41.51 Sepsis due to Escherichia coli [E. coli] (principal); Z20.822 Contact with and (suspected) exposure to COVID-19; I50.33 Acute on chronic diastolic (congestive) heart failure; I21.A1 Myocardial infarction type 2; N17.9 Acute kidney failure, unspecified; I13.0 Hypertensive heart and chronic kidney disease with heart failure and stage 1 through stage 4 chronic kidney disease, or unspecified chronic kidney disease; N30.00 Acute cystitis without hematuria; E44.0 Moderate protein-calorie malnutrition; J44.9 Chronic obstructive pulmonary disease, unspecified; M06.9 Rheumatoid arthritis, unspecified; N18.30 Chronic kidney disease, stage 3 unspecified; L89.322 Pressure ulcer of left buttock, stage 2; L89.312 Pressure ulcer of right buttock, stage 2; D63.8 Anemia in other chronic diseases classified elsewhere; G89.29 Other chronic pain; M54.9 Dorsalgia, unspecified; G72.89 Other specified myopathies; F17.220 Nicotine dependence, chewing tobacco, uncomplicated; E87.6 Hypokalemia; R79.89 Other specified abnormal findings of blood chemistry; I48.0 Paroxysmal atrial fibrillation; F10.20 Alcohol dependence, uncomplicated; Z88.5 Allergy status to narcotic agent; Z88.2 Allergy status to sulfonamides; Z88.7 Allergy status to serum and vaccine; Z88.8 Allergy status to other drugs, medicaments and biological substances; Z74.01 Bed confinement status; Z90.49 Acquired absence of other specified parts of digestive tract; Z68.21 Body mass index [BMI] 21.0-21.9, adult; Z85.21 Personal history of malignant neoplasm of larynx
CPT/HCPCS: 36415; 36416; 36430; 71045; 80048; 80202; 81003; 81015; 82550; 82553; 82607; 82728; 82746; 83605; 83735; 83880; 84145; 84165; 84484; 85025; 85046; 85610; 85730; 86850; 86900; 86901; 87045; 87046; 87077; 87086; 87186; 87324; 87328; 87329; 87427; 87449; 93005; 94640; 94760; 96365; 96367; J0692; J1940; J2060; J2270; J3370; J3411; J3475; J3490; J7042; J7050; J7070; J7120; J7509; J7512; J7620; P9016; U0002

== ENCOUNTER 2021-04-12 08:17 | Inpatient (IN) | payer MEDICARE ==
[2021-04-12] MEDS ORDERED: Diltiazem 125 MG/25 ML ONE (08:29)
[2021-04-12] MEDS ORDERED: Magnesium 2 GM/50 ML BAG (IN WATER) ONE (08:36)
[2021-04-12] MEDS ORDERED: Albuterol Sulfate 2.5 mg/3 ml Neb ONE ×2 (08:42→08:43)
[2021-04-12] MEDS ORDERED: Cefepime 2 GM VIAL ONE (08:58)
[2021-04-12] MEDS ORDERED: Sodium Chloride 0.9% 100 ML ONE (08:58)
[2021-04-12] MEDS ORDERED: VANCOMYCIN 2 GRAM/400 ML BAG 2 GM in Premix Bag 1 BAG IVPB SCH (09:15)
[2021-04-12 09:29] LABS: #Basophils 0.1 thou/uL (0.0-0.2); #Lymphocytes 1.4 thou/uL (1.20-3.40); #Monocytes 0.9 thou/uL (0.11-0.59); #Neutrophils 10.1 thou/uL (1.40-6.50); %Basophils 0.7 % (0.0-1.0); %Eosinophils 0.3 % (0.0-10.0); %Lymphocytes 11.4 % (21.0-51.0); %Monocytes 7.2 % (0.0-10.0); %Neutrophils 80.5 % (42.0-75.0); Hemoglobin 7.3 g/dL (14.0-18.0); Mean Corpuscular HGB CONC 31.4 g/dL (32.0-36.0); Mean Corpuscular Hemoglobin 29.8 pg (27.0-31.0); Mean Platelet Volume 8.4 fL (7.4-10.4); Platelet Count 197 thou/uL (130-400); RBC Distribution Width 16.7 % (11.5-14.5); Red Blood Cell (RBC) Count 2.43 mill/uL (4.70-6.10); White Blood Cell (WBC) Count 12.5 thou/uL (4.8-10.8)
[2021-04-12 09:48] LABS: ALT (SGPT) 14 U/L (8-55); AST (SGOT) 21 U/L (5-34); Alkaline Phosphatase 181 U/L (40-110); Anion Gap 16 mmol/L (10-20); BUN (Urea Nitrogen) 33 mg/dL (8.4-25.7); Bilirubin, Total 0.3 mg/dL (0.2-1.2); Calc. Creatinine Clearance 0 mL/min (70-130); Carbon Dioxide 14 mmol/L (22-29); Chloride 110 mmol/L (98-107); Globulin 3.1 g/dL (2.4-3.5); Glucose 93 mg/dL (70-105); Lipase 13 U/L (8-78); Protein, Total 5.1 g/dL (6.0-8.3); Sodium 137 mmol/L (136-145)
[2021-04-12 09:53] LABS: Potassium 2.7 mmol/L (3.5-5.1)
[2021-04-12 10:00] LABS: Bacteria/HPF None Seen HPF (None Seen); Bilirubin Negative (Negative); Blood, Urine Trace (Negative); Clarity Turbid (Clear); Glucose, Urine (Dipstick) Normal (Negative); Ketone, Urine Negative (Negative); Leukocyte Negative Leu/uL (Negative); Nitrite Negative (Negative); Protein, Urine (Dipstick) 100 mg/dL (Neg-Trace); Specific Gravity, Urine 1.014 (1.002-1.036); Urobilinogen Normal mg/dL (Less than 2); WBC/HPF 0-3 HPF (0-3); pH, Urine 5.5 (5.0-9.0)
[2021-04-12 10:08] LABS: CKMB 3.5 ng/mL (0-6.6)
[2021-04-12 10:26] LABS: Analyzer IN Cardio ER; Base Excess (BEa) -11.4 mEq/L (-2.0 to +3.0); Calcium, Ionized (arterial) 0.81 mmol/L (1.12-1.30); Carboxyhemoglobin (COHb) 0.2 gm% (0.0-3.0); Hemoglobin (Hb) 6.2 g/dL (14.0-18.0); Potassium - ABG Lab 2.72 mmol/L (3.70-5.30); pH, Arterial 7.35 (7.35-7.45)
[2021-04-12] MEDS ORDERED: Potassium Chloride 40 MEQ in Sodium Chloride 0.9% 250 ML 250 ML IVPB SCH (10:30)
[2021-04-12 10:31] LABS: O2 Tension (PaO2), arterial 54.3 mmHg (80.0-100.0)
[2021-04-12 11:34] LABS: SARS-CoV-2 NAA Rapid Test Not Detected (NotDetected)
[2021-04-12 13:12] LABS: Chloride (VBG) 114 mmol/L (98-106); Hemoglobin (Hb) 6.9 g/dL (13.1-17.2); Potassium (VBG) 3.34 mmol/L (3.70-5.30); Sodium 134.8 mmol/L (133-146); pH (venous) 7.32 (7.32-7.43)
[2021-04-12 13:13] LABS: Actual Bicarbonate (HCO3v) 11 mEq/L (22-28)
[2021-04-12] MEDS ORDERED: Ondansetron ODT 4 MG TAB PO PRN (13:29)
[2021-04-12] MEDS ORDERED: Benzonatate 100 MG CAP PO PRN (13:29)
[2021-04-12] MEDS ORDERED: Acetaminophen 500 MG TAB PO PRN (13:29)
[2021-04-12] MEDS ORDERED: Ondansetron PF 4 MG/2 ML Vial IVP PRN (13:29)
[2021-04-12] MEDS ORDERED: Labetalol HCl 100 MG/20 ML VIAL SLOW IVP PRN (13:29)
[2021-04-12] MEDS: Diltiazem 125 MG in Sodium Chloride 0.9% 100 ML IVPB SCH (14:36)
[2021-04-12] MEDS: Gabapentin 300 MG CAP PO SCH ×2 (15:46→20:33)
[2021-04-12] MEDS ORDERED: Digoxin 0.5 MG/2 ML AMP SLOW IVP SCH ×2 (17:00→19:15)
[2021-04-12] MEDS: Mometasone 100 MCG/Formoterol 5 MCG 120 PUFF INHALER INH SCH (19:24)
[2021-04-12] MEDS: Cefepime 2 GM in Sodium Chloride 0.9% 100 ML IVPB SCH (20:28)
[2021-04-12] MEDS: Dronedarone HCl 400 MG TAB PO SCH (20:33)
[2021-04-12] MEDS: Hydroxychloroquine Sulfate 200 MG TAB PO SCH (20:33)
[2021-04-12] MEDS ORDERED: Famotidine/PF 20 mg/2ml Vial SLOW IVP SCH (21:00)
[2021-04-12] MEDS ORDERED: chlordiazePOXIDE HCl 5 MG CAP PO SCH (21:00)
[2021-04-12] MEDS ORDERED: Vancomycin HCl 1.25 GM in Sodium Chloride 0.9% 250 ML 300 ML IVPB SCH (21:00)
[2021-04-12] MEDS ORDERED: Lorazepam 2 MG/ML VIAL SLOW IVP SCH (21:45)
[2021-04-12 22:19] LABS: Anion Gap 17 mmol/L (10-20); BUN (Urea Nitrogen) 33 mg/dL (8.4-25.7); Calc. Creatinine Clearance 59 mL/min (70-130); Carbon Dioxide 11 mmol/L (22-29); Chloride 116 mmol/L (98-107); Glucose 103 mg/dL (70-105); Potassium 3.7 mmol/L (3.5-5.1); Sodium 140 mmol/L (136-145)
[2021-04-12 22:23] LABS: Calcium 5.6 mg/dL (7.8-10.44)
[2021-04-12] MEDS ORDERED: Calcium Gluc 4.6 MEQ/10 ML (100 MG/ML) SLOW IVP SCH (22:45)
[2021-04-12] MEDS ORDERED: Magnesium Sulfate 4 GM in Sodium Chloride 0.9% 250 ML 250 ML IVPB SCH (23:00)
[2021-04-13] MEDS: Diltiazem 125 MG in Sodium Chloride 0.9% 100 ML IVPB SCH (00:45)
[2021-04-13 03:10] LABS: #Basophils 0.1 thou/uL (0.0-0.2); #Lymphocytes 0.8 thou/uL (1.20-3.40); #Monocytes 0.8 thou/uL (0.11-0.59); #Neutrophils 12.1 thou/uL (1.40-6.50); %Basophils 0.6 % (0.0-1.0); %Eosinophils 0.3 % (0.0-10.0); %Lymphocytes 5.5 % (21.0-51.0); %Monocytes 5.6 % (0.0-10.0); %Neutrophils 88.1 % (42.0-75.0); Hemoglobin 6.4 g/dL (14.0-18.0); Mean Corpuscular HGB CONC 30.8 g/dL (32.0-36.0); Mean Corpuscular Hemoglobin 29.9 pg (27.0-31.0); Mean Corpuscular Volume 97.2 fL (78.0-98.0); Mean Platelet Volume 8.2 fL (7.4-10.4); Platelet Count 182 thou/uL (130-400); Red Blood Cell (RBC) Count 2.13 mill/uL (4.70-6.10); White Blood Cell (WBC) Count 13.7 thou/uL (4.8-10.8)
[2021-04-13 03:40] LABS: ALT (SGPT) 14 U/L (8-55); AST (SGOT) 26 U/L (5-34); Albumin 1.7 g/dL (3.5-5.0); Alkaline Phosphatase 150 U/L (40-110); Anion Gap 16 mmol/L (10-20); BUN (Urea Nitrogen) 31 mg/dL (8.4-25.7); Bilirubin, Total 0.2 mg/dL (0.2-1.2); Calc. Creatinine Clearance 60 mL/min (70-130); Carbon Dioxide 10 mmol/L (22-29); Chloride 118 mmol/L (98-107); Globulin 2.7 g/dL (2.4-3.5); Glucose 90 mg/dL (70-105); Potassium 3.4 mmol/L (3.5-5.1); Protein, Total 4.4 g/dL (6.0-8.3); Sodium 141 mmol/L (136-145)
[2021-04-13 03:41] LABS: Calcium 5.9 mg/dL (7.8-10.44)
[2021-04-13 04:52] LABS: Hemoglobin 7.1 g/dL (14.0-18.0)
[2021-04-13] MEDS ORDERED: Potassium Chloride 10 MEQ in Premix Bag 1 BAG IVPB SCH (05:00)
[2021-04-13] MEDS: Mometasone 100 MCG/Formoterol 5 MCG 120 PUFF INHALER INH SCH ×2 (07:44→19:26)
[2021-04-13] MEDS: Vancomycin 1.5 GRAM/300 ML BAG 1.5 GM in Premix Bag 1 BAG IVPB SCH (08:51)
[2021-04-13] MEDS: Cefepime 2 GM in Sodium Chloride 0.9% 100 ML IVPB SCH ×2 (08:51→21:25)
[2021-04-13] MEDS ORDERED: Prevnar 13-Val Conj/PF 0.5 ML SYRINGE IM ONE (09:00)
[2021-04-13] MEDS ORDERED: Furosemide 40 MG TAB PO SCH (09:00)
[2021-04-13] MEDS ORDERED: Nebivolol HCl 5 MG TAB PO SCH (09:00)
[2021-04-13] MEDS: Dronedarone HCl 400 MG TAB PO SCH ×2 (13:22→23:20)
[2021-04-13] MEDS: Folic Acid 1 MG TAB PO SCH (13:22)
[2021-04-13] MEDS: Hydroxychloroquine Sulfate 200 MG TAB PO SCH ×2 (13:22→23:21)
[2021-04-13] MEDS: Gabapentin 300 MG CAP PO SCH ×3 (13:22→23:20)
[2021-04-13] MEDS: predniSONE 5 MG TAB PO SCH (13:22)
[2021-04-13] MEDS: Multivit, Therapeutic 1 TAB PO SCH (13:22)
[2021-04-13] MEDS: Thiamine 100 MG TAB PO SCH (13:23)
[2021-04-14] MEDS: Diltiazem 125 MG in Sodium Chloride 0.9% 100 ML IVPB SCH (00:23)
[2021-04-14 04:32] LABS: Magnesium 1.7 mg/dL (1.6-2.6)
[2021-04-14] MEDS ORDERED: Sodium Chloride 0.9% 250 ML IV SCH (04:45)
[2021-04-14 08:07] LABS: Vancomycin, Trough 26.9 ug/mL
[2021-04-14] MEDS ORDERED: Dextrose 50% Abboject 50 ML SYRINGE ONE (08:30)
[2021-04-14] MEDS: Mometasone 100 MCG/Formoterol 5 MCG 120 PUFF INHALER INH SCH ×2 (08:52→21:22)
[2021-04-14] MEDS: Gabapentin 300 MG CAP PO SCH ×3 (09:06→23:17)
[2021-04-14] MEDS: Multivit, Therapeutic 1 TAB PO SCH (09:06)
[2021-04-14] MEDS: Hydroxychloroquine Sulfate 200 MG TAB PO SCH ×2 (09:06→23:18)
[2021-04-14] MEDS: Folic Acid 1 MG TAB PO SCH (09:06)
[2021-04-14] MEDS: predniSONE 5 MG TAB PO SCH (09:06)
[2021-04-14] MEDS: Dronedarone HCl 400 MG TAB PO SCH ×2 (09:06→23:17)
[2021-04-14] MEDS: Furosemide 40 MG/4 ML VIAL SLOW IVP SCH (09:07)
[2021-04-14] MEDS: Cefepime 2 GM in Sodium Chloride 0.9% 100 ML IVPB SCH ×2 (09:12→20:19)
[2021-04-14] MEDS: Vancomycin 1.5 GRAM/300 ML BAG 1.5 GM in Premix Bag 1 BAG IVPB SCH (09:12)
[2021-04-14] MEDS: Dextrose 5% in Water 1,000 ML IV SCH (09:13)
[2021-04-14] MEDS: Thiamine 100 MG TAB PO SCH (09:18)
[2021-04-14 09:42] LABS: Hemoglobin 6.4 g/dL (14.0-18.0); Mean Corpuscular HGB CONC 30.2 g/dL (32.0-36.0); Mean Corpuscular Hemoglobin 29.1 pg (27.0-31.0); Mean Corpuscular Volume 96.6 fL (78.0-98.0); Mean Platelet Volume 8.3 fL (7.4-10.4); Platelet Count 178 thou/uL (130-400); RBC Distribution Width 17.3 % (11.5-14.5); Red Blood Cell (RBC) Count 2.21 mill/uL (4.70-6.10); White Blood Cell (WBC) Count 17.9 thou/uL (4.8-10.8)
[2021-04-14 09:51] LABS: ALT (SGPT) 16 U/L (8-55); AST (SGOT) 35 U/L (5-34); Albumin 1.6 g/dL (3.5-5.0); Alkaline Phosphatase 160 U/L (40-110); Anion Gap 17 mmol/L (10-20); BUN (Urea Nitrogen) 38 mg/dL (8.4-25.7); Bilirubin, Total 0.2 mg/dL (0.2-1.2); Calc. Creatinine Clearance 52 mL/min (70-130); Carbon Dioxide 10 mmol/L (22-29); Chloride 123 mmol/L (98-107); Globulin 2.6 g/dL (2.4-3.5); Glucose 106 mg/dL (70-105); Potassium 3.5 mmol/L (3.5-5.1); Protein, Total 4.2 g/dL (6.0-8.3); Sodium 146 mmol/L (136-145)
[2021-04-14 10:23] LABS: Band 27 % (5-11); Burr Cells SLIGHT = 2-5 cells (100X) (0-1/hpf); Hypochromia SLIGHT = 6-15 cells (100X) (0-5/hpf); Lymphocytes 5 % (21-51); MDiff Complete? YES; Metamyelocyte 1 % (0-0); Monocytes 7 % (0-10); Neutrophil 59 % (42-75); Platelet Morphology Comment Appears Adequate; Polychromasia SLIGHT = 2-3 cells (100X) (0-2/hpf)
[2021-04-14] MEDS: methylPREDNISolone Sod Succ 40 MG VIAL IVP SCH ×3 (11:50→23:19)
[2021-04-14] MEDS ORDERED: D5W-AA 4.25% with LYTES 1,000 ML IV SCH (17:00)
[2021-04-15] MEDS ORDERED: Furosemide 20 MG/2 ML VIAL SLOW IVP SCH (02:45)
[2021-04-15] MEDS: Dextrose 5% in Water 1,000 ML IV SCH ×2 (03:00→10:55)
[2021-04-15 03:47] LABS: Actual Bicarbonate (HCO3a) 9.7 mEq/L (22-28); CO2 Tension 33.5 mmHg (35.0-45.0); Carboxyhemoglobin (COHb) 0.5 gm% (0.0-3.0); Hemoglobin (Hb) 8.7 g/dL (14.0-18.0); O2 Tension (PaO2), arterial 76.5 mmHg (80.0-100.0); Potassium - ABG Lab 4.07 mmol/L (3.70-5.30)
[2021-04-15 03:50] LABS: Puncture Site LBR; pH, Arterial 7.08 (7.35-7.45)
[2021-04-15 03:51] LABS: ALV-art Gradient 202.475 mmHg (0-20)
[2021-04-15] MEDS ORDERED: Sodium Bicarb 50 MEQ/50 ML Abboject 8.4% SYRINGE IVP SCH ×2 (04:00→05:00)
[2021-04-15] MEDS ORDERED: Norepinephrine 8 MG/0.9% NS 250 ML IVPB PRN (04:01)
[2021-04-15] MEDS ORDERED: Sodium Bicarb 50 MEQ/50 ML Abboject 8.4% SYRINGE ONE (04:05)
[2021-04-15 04:09] LABS: Anion Gap 18 mmol/L (10-20); BUN (Urea Nitrogen) 41 mg/dL (8.4-25.7); Calc. Creatinine Clearance 44 mL/min (70-130); Calcium 6.2 mg/dL (7.8-10.44); Chloride 119 mmol/L (98-107); Glucose 199 mg/dL (70-105); Magnesium 1.8 mg/dL (1.6-2.6); Potassium 4.3 mmol/L (3.5-5.1); Sodium 142 mmol/L (136-145)
[2021-04-15 04:11] LABS: Carbon Dioxide 9 mmol/L (22-29)
[2021-04-15] MEDS ORDERED: Morphine 2 MG/ML VIAL SLOW IVP PRN (04:15)
[2021-04-15] MEDS ORDERED: Fentanyl BOLUS 250 ML IVPB PRN (04:15)
[2021-04-15] MEDS ORDERED: Propofol BOLUS 1,000 MG/100 ML VIAL IV PRN (04:15)
[2021-04-15] MEDS ORDERED: Ventilator Sedation Protocol FS SCH (04:15)
[2021-04-15] MEDS ORDERED: DISCONTINUE PREVIOUS NARCOTIC PAIN MEDICATIONS AND BENZODIAZEPINES FS SCH (04:15)
[2021-04-15 04:19] LABS: #Basophils 0.1 thou/uL (0.0-0.2); #Lymphocytes 0.9 thou/uL (1.20-3.40); #Monocytes 0.7 thou/uL (0.11-0.59); #Neutrophils 14.5 thou/uL (1.40-6.50); %Basophils 0.4 % (0.0-1.0); %Eosinophils 0.3 % (0.0-10.0); %Lymphocytes 5.3 % (21.0-51.0); %Monocytes 4.2 % (0.0-10.0); %Neutrophils 89.8 % (42.0-75.0); Hemoglobin 8.9 g/dL (14.0-18.0); Mean Corpuscular HGB CONC 30.9 g/dL (32.0-36.0); Mean Corpuscular Hemoglobin 28.5 pg (27.0-31.0); Mean Corpuscular Volume 92.4 fL (78.0-98.0); Mean Platelet Volume 8.5 fL (7.4-10.4); Platelet Count 198 thou/uL (130-400); RBC Distribution Width 18.8 % (11.5-14.5); Red Blood Cell (RBC) Count 3.13 mill/uL (4.70-6.10); White Blood Cell (WBC) Count 16.1 thou/uL (4.8-10.8)
[2021-04-15 04:48] LABS: Actual Bicarbonate (HCO3a) 13.4 mEq/L (22-28); CO2 Tension 32.9 mmHg (35.0-45.0); Calcium, Ionized (arterial) 0.85 mmol/L (1.12-1.30); Carboxyhemoglobin (COHb) 0.5 gm% (0.0-3.0); O2 Tension (PaO2), arterial 67.7 mmHg (80.0-100.0); Potassium - ABG Lab 3.72 mmol/L (3.70-5.30)
[2021-04-15 04:49] LABS: pH, Arterial 7.23 (7.35-7.45)
[2021-04-15 04:50] LABS: ALV-art Gradient 318.975 mmHg (0-20); Puncture Site RBA
[2021-04-15] MEDS: methylPREDNISolone Sod Succ 40 MG VIAL IVP SCH ×2 (05:28→12:24)
[2021-04-15] MEDS: Sodium Bicarbonate 150 MEQ in Dextrose 5% in Water 1,000 ML IV SCH ×3 (05:28→17:54)
[2021-04-15] MEDS ORDERED: Rocuronium Bromide 10 MG/ML (10ML VIAL) IVP SCH (05:30)
[2021-04-15] MEDS ORDERED: Calcium Gluconate 13.8 MEQ in Sodium Chloride 0.9% 250 ML 250 ML IVPB SCH (06:08)
[2021-04-15] MEDS: Mometasone 100 MCG/Formoterol 5 MCG 120 PUFF INHALER INH SCH ×2 (08:06→19:08)
[2021-04-15 08:15] LABS: Actual Bicarbonate (HCO3a) 14.6 mEq/L (22-28); Base Excess (BEa) -11.4 mEq/L (-2.0 to +3.0); CO2 Tension 33.2 mmHg (35.0-45.0); Calcium, Ionized (arterial) 0.91 mmol/L (1.12-1.30); Carboxyhemoglobin (COHb) 0.2 gm% (0.0-3.0); Hemoglobin (Hb) 8.3 g/dL (14.0-18.0); O2 Tension (PaO2), arterial 92.4 mmHg (80.0-100.0); Potassium - ABG Lab 3.01 mmol/L (3.70-5.30); pH, Arterial 7.26 (7.35-7.45)
[2021-04-15 08:16] LABS: Puncture Site RRA
[2021-04-15] MEDS: predniSONE 5 MG TAB PO SCH (10:14)
[2021-04-15] MEDS: Vancomycin 1 GM in Premix Bag 1 BAG IVPB SCH (10:15)
[2021-04-15] MEDS: Cefepime 2 GM in Sodium Chloride 0.9% 100 ML IVPB SCH ×2 (10:15→21:03)
[2021-04-15] MEDS: Thiamine 100 MG TAB PO SCH (10:31)
[2021-04-15] MEDS: Dronedarone HCl 400 MG TAB PO SCH ×2 (10:31→21:01)
[2021-04-15] MEDS: Folic Acid 1 MG TAB PO SCH (10:31)
[2021-04-15] MEDS: Furosemide 40 MG/4 ML VIAL SLOW IVP SCH (10:31)
[2021-04-15] MEDS: Hydroxychloroquine Sulfate 200 MG TAB PO SCH ×2 (10:31→21:15)
[2021-04-15] MEDS: Multivit, Therapeutic 1 TAB PO SCH (10:31)
[2021-04-15] MEDS ORDERED: Pantoprazole 40 MG GRANULES PACKET PER TUBE SCH (10:45)
[2021-04-15 10:50] LABS: Creatinine, Urine 24.84 mg/dL (63-166)
[2021-04-15] MEDS: Gabapentin 300 MG CAP PO SCH ×3 (10:55→21:00)
[2021-04-15] MEDS ORDERED: Dextrose 50% Abboject 50 ML SYRINGE SLOW IVP PRN (11:35)
[2021-04-15] MEDS ORDERED: Dextrose 5% in Water 1,000 ML IV PRN (11:35)
[2021-04-15] MEDS: Insulin Regular 300 UNITS/3 ML VIAL SC PRN ×2 (12:24→16:54)
[2021-04-15] MEDS: Norepinephrine 8 MG/0.9% NS 250 ML ONE (16:54)
[2021-04-15] MEDS ORDERED: methylPREDNISolone Sod Succ 40 MG VIAL ONE (16:57)
[2021-04-15] MEDS: Albumin 25% 25 GM/100 ML BOT IVPB SCH (17:56)
[2021-04-15 18:04] LABS: Albumin 1.8 g/dL (3.5-5.0); Anion Gap 15 mmol/L (10-20); BUN (Urea Nitrogen) 46 mg/dL (8.4-25.7); BUN/Creatinine Ratio 20.44; Calc. Creatinine Clearance 41 mL/min (70-130); Calcium 6.5 mg/dL (7.8-10.44); Carbon Dioxide 20 mmol/L (22-29); Chloride 114 mmol/L (98-107); Glucose 243 mg/dL (70-105); Phosphorus 5.1 mg/dL (2.3-4.7); Potassium 3.2 mmol/L (3.5-5.1); Sodium 146 mmol/L (136-145)
[2021-04-16] MEDS: Albumin 25% 25 GM/100 ML BOT IVPB SCH ×4 (01:16→20:45)
[2021-04-16] MEDS: Insulin Regular 300 UNITS/3 ML VIAL SC PRN ×5 (01:45→22:32)
[2021-04-16 05:18] LABS: Anisocytosis MODERATE=16-30 cells (100X) (0-5/hpf); Band 15 % (5-11); Burr Cells SLIGHT = 2-5 cells (100X) (0-1/hpf); Elliptocytes SLIGHT = 2-5 cells (100X) (0-1/hpf); Hemoglobin 7.9 g/dL (14.0-18.0); Lymphocytes 1 % (21-51); MDiff Complete? YES; Mean Corpuscular HGB CONC 32.6 g/dL (32.0-36.0); Mean Corpuscular Hemoglobin 28.8 pg (27.0-31.0); Mean Corpuscular Volume 88.2 fL (78.0-98.0); Mean Platelet Volume 8.7 fL (7.4-10.4); Monocytes 1 % (0-10); Neutrophil 83 % (42-75); Nucleated RBC 1 % (0); Platelet Count 188 thou/uL (130-400); Platelet Morphology Comment Appears Adequate; RBC Distribution Width 19.1 % (11.5-14.5); Red Blood Cell (RBC) Count 2.75 mill/uL (4.70-6.10); White Blood Cell (WBC) Count 15.4 thou/uL (4.8-10.8)
[2021-04-16] MEDS: Mometasone 100 MCG/Formoterol 5 MCG 120 PUFF INHALER INH SCH ×2 (07:26→18:48)
[2021-04-16] MEDS: Vancomycin 1 GM in Premix Bag 1 BAG IVPB SCH (07:49)
[2021-04-16] MEDS: Norepinephrine 8 MG/0.9% NS 250 ML ONE (07:50)
[2021-04-16 08:05] LABS: Actual Bicarbonate (HCO3a) 19.4 mEq/L (22-28); Base Excess (BEa) -5.9 mEq/L (-2.0 to +3.0); CO2 Tension 37.4 mmHg (35.0-45.0); Calcium, Ionized (arterial) 0.86 mmol/L (1.12-1.30); Carboxyhemoglobin (COHb) 1.5 gm% (0.0-3.0); Hemoglobin (Hb) 7.8 g/dL (14.0-18.0); Potassium - ABG Lab 3.33 mmol/L (3.70-5.30); pH, Arterial 7.33 (7.35-7.45)
[2021-04-16 08:13] LABS: O2 Tension (PaO2), arterial 42.4 mmHg (80.0-100.0); Puncture Site LRA
[2021-04-16] MEDS ORDERED: methylPREDNISolone Sod Succ 40 MG VIAL IVP SCH (09:00)
[2021-04-16] MEDS: Dronedarone HCl 400 MG TAB PO SCH ×2 (09:14→20:42)
[2021-04-16] MEDS: Pantoprazole 40 MG GRANULES PACKET PER TUBE SCH (09:14)
[2021-04-16] MEDS: Multivit, Therapeutic 1 TAB PO SCH (09:14)
[2021-04-16] MEDS: Gabapentin 300 MG CAP PO SCH ×3 (09:15→20:42)
[2021-04-16] MEDS: Thiamine 100 MG TAB PO SCH (09:16)
[2021-04-16] MEDS: Hydroxychloroquine Sulfate 200 MG TAB PO SCH ×2 (09:16→20:42)
[2021-04-16] MEDS: Folic Acid 1 MG TAB PO SCH (09:16)
[2021-04-16] MEDS: Cefepime 2 GM in Sodium Chloride 0.9% 100 ML IVPB SCH ×2 (09:30→20:42)
[2021-04-16] MEDS: Lorazepam 2 MG/ML VIAL SLOW IVP PRN ×4 (09:49→22:28)
[2021-04-16] MEDS: Potassium Chloride 20 MEQ in Premix Bag 1 BAG IVPB SCH ×2 (09:53→11:01)
[2021-04-16 10:34] LABS: HIV (1/2) Antibody/Antigen Non-Reactive (NonReactive); HIV 1/2 INDEX 0.06 S/CO (<1.00)
[2021-04-16] MEDS: Sodium Bicarbonate 150 MEQ in Dextrose 5% in Water 1,000 ML IV SCH (12:26)
[2021-04-16 17:29] LABS: ALT (SGPT) 14 U/L (8-55); AST (SGOT) 24 U/L (5-34); Albumin 2.8 g/dL (3.5-5.0); Alkaline Phosphatase 160 U/L (40-110); Anion Gap 17 mmol/L (10-20); BUN (Urea Nitrogen) 52 mg/dL (8.4-25.7); Bilirubin, Total 0.4 mg/dL (0.2-1.2); Calc. Creatinine Clearance 36 mL/min (70-130); Calcium 6.4 mg/dL (7.8-10.44); Carbon Dioxide 20 mmol/L (22-29); Chloride 113 mmol/L (98-107); Globulin 2.2 g/dL (2.4-3.5); Glucose 191 mg/dL (70-105); Potassium 3.9 mmol/L (3.5-5.1); Sodium 146 mmol/L (136-145)
[2021-04-16] MEDS: Atorvastatin Calcium 40 MG TAB PO SCH (20:42)
[2021-04-16] MEDS: Propofol 1,000 MG/100 ML VIAL IV PRN (23:35)
[2021-04-17] MEDS: Albumin 25% 25 GM/100 ML BOT IVPB SCH (01:03)
[2021-04-17 05:21] LABS: Anion Gap 15 mmol/L (10-20); BUN (Urea Nitrogen) 56 mg/dL (8.4-25.7); Calc. Creatinine Clearance 35 mL/min (70-130); Calcium 6.6 mg/dL (7.8-10.44); Carbon Dioxide 22 mmol/L (22-29); Cardiac Risk 3.8 (Less than 4.5); Chloride 110 mmol/L (98-107); Cholesterol 61 mg/dl (< 200 Desired); Glucose 286 mg/dL (70-105); HDL Cholesterol 16 mg/dL (>60 Neg Risk); LDL Cholesterol, Calculated 33 mg/dL; Potassium 3.3 mmol/L (3.5-5.1); Sodium 144 mmol/L (136-145); Triglycerides 59 mg/dL (Less than 150)
[2021-04-17 05:28] LABS: Anisocytosis MODERATE=16-30 cells (100X) (0-5/hpf); Band 5 % (5-11); Hemoglobin 7.3 g/dL (14.0-18.0); Lymphocytes 6 % (21-51); MDiff Complete? YES; Mean Corpuscular HGB CONC 33.4 g/dL (32.0-36.0); Mean Corpuscular Hemoglobin 29.2 pg (27.0-31.0); Mean Corpuscular Volume 87.5 fL (78.0-98.0); Monocytes 5 % (0-10); Neutrophil 84 % (42-75); Platelet Count 131 thou/uL (130-400); Platelet Morphology Comment Appears Adequate; Red Blood Cell (RBC) Count 2.49 mill/uL (4.70-6.10); White Blood Cell (WBC) Count 11.2 thou/uL (4.8-10.8)
[2021-04-17] MEDS: Insulin Regular 300 UNITS/3 ML VIAL SC PRN ×4 (05:55→22:19)
[2021-04-17] MEDS: Norepinephrine 8 MG/0.9% NS 250 ML IVPB SCH (05:55)
[2021-04-17 07:49] LABS: Vancomycin, Trough 42.9 ug/mL
[2021-04-17] MEDS ORDERED: Calcium Gluconate 4.6 MEQ in Sodium Chloride 0.9% 100 ML IVPB SCH (08:10)
[2021-04-17] MEDS ORDERED: Sodium Chloride 0.45% 1,000 ML IV SCH (08:15)
[2021-04-17] MEDS: Mometasone 100 MCG/Formoterol 5 MCG 120 PUFF INHALER INH SCH ×2 (08:19→18:48)
[2021-04-17] MEDS: Thiamine 100 MG TAB PO SCH (08:20)
[2021-04-17] MEDS: Multivit, Therapeutic 1 TAB PO SCH (08:21)
[2021-04-17] MEDS: Folic Acid 1 MG TAB PO SCH (08:21)
[2021-04-17] MEDS: Dronedarone HCl 400 MG TAB PO SCH ×2 (08:21→21:12)
[2021-04-17] MEDS: Pantoprazole 40 MG GRANULES PACKET PER TUBE SCH (08:21)
[2021-04-17] MEDS: Gabapentin 300 MG CAP PO SCH ×3 (08:21→21:11)
[2021-04-17] MEDS: Potassium Chloride 20 MEQ in Premix Bag 1 BAG IVPB SCH ×2 (08:40→10:33)
[2021-04-17 08:41] LABS: Actual Bicarbonate (HCO3a) 19.9 mEq/L (22-28); Base Excess (BEa) -4.4 mEq/L (-2.0 to +3.0); CO2 Tension 32.7 mmHg (35.0-45.0); Calcium, Ionized (arterial) 0.86 mmol/L (1.12-1.30); Carboxyhemoglobin (COHb) 0.9 gm% (0.0-3.0); Hemoglobin (Hb) 6.8 g/dL (14.0-18.0)
[2021-04-17 08:42] LABS: O2 Tension (PaO2), arterial 56.1 mmHg (80.0-100.0)
[2021-04-17 08:43] LABS: ALV-art Gradient 223.875 mmHg (0-20); Puncture Site RRA
[2021-04-17] MEDS: Cefepime 2 GM in Sodium Chloride 0.9% 100 ML IVPB SCH ×2 (08:55→21:15)
[2021-04-17] MEDS: Hydrocortisone Sod Succ/PF 100 mg/2 ml Vial IVP SCH ×2 (08:59→21:11)
[2021-04-17] MEDS ORDERED: Aspirin 300 MG Suppository PR SCH (09:00)
[2021-04-17] MEDS: Aspirin 325 MG TAB PER TUBE SCH (09:10)
[2021-04-17] MEDS: Fluconazole In NaCl,Iso-Osm 200 MG in Premix Bag 1 BAG IVPB SCH (09:10)
[2021-04-17] MEDS: Hydroxychloroquine Sulfate 200 MG TAB PO SCH ×2 (09:10→21:11)
[2021-04-17 11:34] LABS: Syphilis Antibody REACTIVE (Nonreactive); Syphilis Antibody Index 2.73 S/CO (<1.00 Non-Reactive)
[2021-04-17 14:38] LABS: Potassium 3.8 mmol/L (3.5-5.1)
[2021-04-17] MEDS ORDERED: Calcium Gluconate 9.2 MEQ in Sodium Chloride 0.9% 200 ML IVPB ONE (15:09)
[2021-04-17] MEDS: Lorazepam 2 MG/ML VIAL SLOW IVP PRN (21:10)
[2021-04-17] MEDS: Atorvastatin Calcium 40 MG TAB PO SCH (21:11)
[2021-04-17] MEDS: Fentanyl CADD 100 ML IV SCH (23:59)
[2021-04-18 03:37] LABS: Anion Gap 16 mmol/L (10-20); BUN (Urea Nitrogen) 68 mg/dL (8.4-25.7); Calc. Creatinine Clearance 32 mL/min (70-130); Calcium 6.9 mg/dL (7.8-10.44); Carbon Dioxide 21 mmol/L (22-29); Chloride 113 mmol/L (98-107); Glucose 136 mg/dL (70-105); Potassium 3.6 mmol/L (3.5-5.1); Sodium 146 mmol/L (136-145)
[2021-04-18 04:39] LABS: Anisocytosis SLIGHT = 6-15 cells (100X) (0-5/hpf); Band 7 % (5-11); Hemoglobin 7.4 g/dL (14.0-18.0); Lymphocytes 7 % (21-51); MDiff Complete? YES; Mean Corpuscular HGB CONC 33.8 g/dL (32.0-36.0); Mean Corpuscular Hemoglobin 29.7 pg (27.0-31.0); Mean Platelet Volume 9.9 fL (7.4-10.4); Monocytes 6 % (0-10); Neutrophil 80 % (42-75); Platelet Count 90 thou/uL (130-400); Platelet Morphology Comment Appears Decreased; RBC Distribution Width 18.4 % (11.5-14.5); Red Blood Cell (RBC) Count 2.49 mill/uL (4.70-6.10); White Blood Cell (WBC) Count 11.6 thou/uL (4.8-10.8)
[2021-04-18] MEDS: Mometasone 100 MCG/Formoterol 5 MCG 120 PUFF INHALER INH SCH ×2 (05:27→19:13)
[2021-04-18 07:05] LABS: Actual Bicarbonate (HCO3a) 20.3 mEq/L (22-28); Base Excess (BEa) -5.5 mEq/L (-2.0 to +3.0); CO2 Tension 40.6 mmHg (35.0-45.0); Calcium, Ionized (arterial) 0.97 mmol/L (1.12-1.30); Carboxyhemoglobin (COHb) 2.4 gm% (0.0-3.0); Hemoglobin (Hb) 8.4 g/dL (14.0-18.0); Potassium - ABG Lab 3.58 mmol/L (3.70-5.30); pH, Arterial 7.32 (7.35-7.45)
[2021-04-18 07:23] LABS: O2 Tension (PaO2), arterial 56.6 mmHg (80.0-100.0)
[2021-04-18 07:24] LABS: Puncture Site RRA
[2021-04-18 07:55] LABS: Vancomycin, Random 39.9 ug/mL (See Comment)
[2021-04-18] MEDS: Gabapentin 300 MG CAP PO SCH ×3 (08:36→20:22)
[2021-04-18] MEDS: Pantoprazole 40 MG GRANULES PACKET PER TUBE SCH (08:36)
[2021-04-18] MEDS: Multivit, Therapeutic 1 TAB PO SCH (08:37)
[2021-04-18] MEDS: Cefepime 2 GM in Sodium Chloride 0.9% 100 ML IVPB SCH ×2 (08:37→21:54)
[2021-04-18] MEDS: Folic Acid 1 MG TAB PO SCH (08:37)
[2021-04-18] MEDS: Hydrocortisone Sod Succ/PF 100 mg/2 ml Vial IVP SCH ×2 (08:37→20:23)
[2021-04-18] MEDS: Thiamine 100 MG TAB PO SCH (08:37)
[2021-04-18] MEDS: Aspirin 325 MG TAB PER TUBE SCH (08:37)
[2021-04-18] MEDS: Hydroxychloroquine Sulfate 200 MG TAB PO SCH ×2 (09:21→20:22)
[2021-04-18] MEDS: Albumin 25% 25 GM/100 ML BOT IVPB SCH ×3 (09:21→21:58)
[2021-04-18] MEDS: Lorazepam 2 MG/ML VIAL SLOW IVP PRN ×4 (09:34→23:47)
[2021-04-18] MEDS: Dronedarone HCl 400 MG TAB PO SCH ×2 (09:38→20:22)
[2021-04-18] MEDS: Fluconazole In NaCl,Iso-Osm 200 MG in Premix Bag 1 BAG IVPB SCH (09:56)
[2021-04-18] MEDS ORDERED: Vancomycin 1 GM in Premix Bag 1 BAG IVPB SCH (12:00)
[2021-04-18] MEDS ORDERED: Calcium Gluconate 9.2 MEQ in Sodium Chloride 0.9% 200 ML IVPB SCH (13:00)
[2021-04-18 13:40] VITALS: BP 124/72
[2021-04-18] MEDS: Sodium Bicarbonate Tab 325 MG TAB PER TUBE SCH ×2 (14:15→20:21)
[2021-04-18] MEDS: Insulin Regular 300 UNITS/3 ML VIAL SC PRN (15:41)
[2021-04-18 16:18] VITALS: BMI 26.7
[2021-04-18] MEDS: Atorvastatin Calcium 40 MG TAB PO SCH (20:22)
[2021-04-18] MEDS ORDERED: Lorazepam 2 MG/ML VIAL SLOW IVP PRN (23:44)
[2021-04-18] MEDS: Propofol 1,000 MG/100 ML VIAL IV PRN (23:48)
[2021-04-18] MEDS: levETIRAcetam in NS 500 MG in Premix Bag 1 BAG IVPB SCH (23:55)
[2021-04-19 02:07] LABS: Hemoglobin 7.6 g/dL (14.0-18.0); Mean Corpuscular HGB CONC 32.4 g/dL (32.0-36.0); Mean Corpuscular Hemoglobin 28.7 pg (27.0-31.0); Mean Corpuscular Volume 88.7 fL (78.0-98.0); Mean Platelet Volume 10.2 fL (7.4-10.4); Platelet Count 73 thou/uL (130-400); RBC Distribution Width 18.6 % (11.5-14.5); Red Blood Cell (RBC) Count 2.64 mill/uL (4.70-6.10)
[2021-04-19 02:08] LABS: Prothrombin Time 22.9 sec (12.0-14.7)
[2021-04-19 02:09] LABS: PTT 36.6 sec (22.9-36.1)
[2021-04-19 02:18] LABS: D-Dimer Test 8.84 *mcg/mL (0.27-0.43)
[2021-04-19] MEDS: Norepinephrine 8 MG/0.9% NS 250 ML IVPB SCH ×2 (02:21→10:43)
[2021-04-19 02:38] LABS: Band 6 % (5-11); Lymphocytes 5 % (21-51); MDiff Complete? YES; Monocytes 8 % (0-10); Myelocyte 1 % (0-0); Neutrophil 80 % (42-75); Nucleated RBC 2 % (0); Platelet Morphology Comment Appears Decreased
[2021-04-19 02:50] LABS: Anion Gap 17 mmol/L (10-20); BUN (Urea Nitrogen) 83 mg/dL (8.4-25.7); Calc. Creatinine Clearance 30 mL/min (70-130); Calcium 7.9 mg/dL (7.8-10.44); Carbon Dioxide 21 mmol/L (22-29); Chloride 112 mmol/L (98-107); Glucose 191 mg/dL (70-105); Potassium 3.8 mmol/L (3.5-5.1); Sodium 146 mmol/L (136-145)
[2021-04-19] MEDS: Albumin 25% 25 GM/100 ML BOT IVPB SCH (03:50)
[2021-04-19 07:48] LABS: Actual Bicarbonate (HCO3a) 22.2 mEq/L (22-28); Base Excess (BEa) -6.3 mEq/L (-2.0 to +3.0); Calcium, Ionized (arterial) 1.05 mmol/L (1.12-1.30); Carboxyhemoglobin (COHb) 1.3 gm% (0.0-3.0); Hemoglobin (Hb) 8.3 g/dL (14.0-18.0); Potassium - ABG Lab 3.64 mmol/L (3.70-5.30)
[2021-04-19 07:56] LABS: CO2 Tension 62.3 mmHg (35.0-45.0); O2 Tension (PaO2), arterial 53.7 mmHg (80.0-100.0); Puncture Site RRA; pH, Arterial 7.17 (7.35-7.45)
[2021-04-19 07:57] LABS: ALV-art Gradient 581.425 mmHg (0-20)
[2021-04-19] MEDS: Mometasone 100 MCG/Formoterol 5 MCG 120 PUFF INHALER INH SCH ×2 (07:58→18:50)
[2021-04-19] MEDS: Fentanyl CADD 100 ML IV SCH (08:03)
[2021-04-19 08:22] LABS: Vancomycin, Random 34.7 ug/mL (See Comment)
[2021-04-19] MEDS: Cefepime 2 GM in Sodium Chloride 0.9% 100 ML IVPB SCH ×2 (09:30→20:59)
[2021-04-19] MEDS: Insulin Regular 300 UNITS/3 ML VIAL SC PRN (09:30)
[2021-04-19] MEDS: Fluconazole In NaCl,Iso-Osm 200 MG in Premix Bag 1 BAG IVPB SCH (09:31)
[2021-04-19] MEDS: Hydroxychloroquine Sulfate 200 MG TAB PO SCH ×2 (09:32→21:00)
[2021-04-19] MEDS: Folic Acid 1 MG TAB PO SCH (09:32)
[2021-04-19] MEDS: Gabapentin 300 MG CAP PO SCH ×3 (09:32→21:00)
[2021-04-19] MEDS: Sodium Bicarbonate Tab 325 MG TAB PER TUBE SCH ×3 (09:33→21:00)
[2021-04-19] MEDS: Thiamine 100 MG TAB PO SCH (09:33)
[2021-04-19] MEDS: Multivit, Therapeutic 1 TAB PO SCH (09:33)
[2021-04-19] MEDS: Hydrocortisone Sod Succ/PF 100 mg/2 ml Vial IVP SCH ×2 (09:33→20:59)
[2021-04-19] MEDS: Dronedarone HCl 400 MG TAB PO SCH ×2 (09:33→21:00)
[2021-04-19] MEDS: Pantoprazole 40 MG GRANULES PACKET PER TUBE SCH (09:34)
[2021-04-19] MEDS: Propofol 1,000 MG/100 ML VIAL IV PRN ×2 (10:43→15:10)
[2021-04-19] MEDS: levETIRAcetam in NS 500 MG in Premix Bag 1 BAG IVPB SCH (13:06)
[2021-04-19] MEDS ORDERED: SODIUM CHLORIDE 0.9% IVPB SCH (15:00)
[2021-04-19] MEDS ORDERED: LEVETIRACETAM IVPB SCH (15:00)
[2021-04-19] MEDS: Metoclopramide HCl 10 MG/2 ML VIAL IVP SCH (19:09)
[2021-04-19 20:05] LABS: SARS-CoV-2 PCR by NAA Not Detected (NotDetected)
[2021-04-19] MEDS: levETIRAcetam in NS 1,500 MG in Premix Bag 1 BAG IVPB SCH (20:59)
[2021-04-19] MEDS: Atorvastatin Calcium 40 MG TAB PO SCH (21:00)
[2021-04-20] MEDS: Metoclopramide HCl 10 MG/2 ML VIAL IVP SCH ×4 (00:41→18:18)
[2021-04-20 05:27] LABS: Hemoglobin 7.4 g/dL (14.0-18.0); Mean Corpuscular HGB CONC 32.2 g/dL (32.0-36.0); Mean Corpuscular Hemoglobin 28.4 pg (27.0-31.0); Mean Corpuscular Volume 88.1 fL (78.0-98.0); Platelet Count 48 thou/uL (130-400); RBC Distribution Width 18.9 % (11.5-14.5); Red Blood Cell (RBC) Count 2.59 mill/uL (4.70-6.10)
[2021-04-20 05:36] LABS: Anion Gap 18 mmol/L (10-20); BUN (Urea Nitrogen) 100 mg/dL (8.4-25.7); Calc. Creatinine Clearance 28 mL/min (70-130); Calcium 7.8 mg/dL (7.8-10.44); Carbon Dioxide 19 mmol/L (22-29); Chloride 111 mmol/L (98-107); Glucose 114 mg/dL (70-105); Potassium 3.7 mmol/L (3.5-5.1); Sodium 144 mmol/L (136-145)
[2021-04-20 06:25] LABS: Anisocytosis SLIGHT = 6-15 cells (100X) (0-5/hpf); Band 6 % (5-11); Eosinophils 1 % (0-10); Lymphocytes 5 % (21-51); MDiff Complete? YES; Monocytes 4 % (0-10); Neutrophil 84 % (42-75); Platelet Morphology Comment Appears Decreased
[2021-04-20] MEDS: Mometasone 100 MCG/Formoterol 5 MCG 120 PUFF INHALER INH SCH ×2 (07:29→19:17)
[2021-04-20] MEDS: levETIRAcetam in NS 1,500 MG in Premix Bag 1 BAG IVPB SCH (08:00)
[2021-04-20 08:13] LABS: Actual Bicarbonate (HCO3a) 18.7 mEq/L (22-28); Base Excess (BEa) -6.7 mEq/L (-2.0 to +3.0); CO2 Tension 36.8 mmHg (35.0-45.0); Calcium, Ionized (arterial) 1.01 mmol/L (1.12-1.30); Carboxyhemoglobin (COHb) 1.6 gm% (0.0-3.0); Hemoglobin (Hb) 9.2 g/dL (14.0-18.0); Potassium - ABG Lab 3.55 mmol/L (3.70-5.30); pH, Arterial 7.32 (7.35-7.45)
[2021-04-20 08:23] LABS: O2 Tension (PaO2), arterial 48.7 mmHg (80.0-100.0); Puncture Site RRA
[2021-04-20 08:27] LABS: Vancomycin, Random 35.1 ug/mL (See Comment)
[2021-04-20] MEDS: Gabapentin 300 MG CAP PO SCH ×2 (08:41→18:18)
[2021-04-20] MEDS: Multivit, Therapeutic 1 TAB PO SCH (08:41)
[2021-04-20] MEDS: Dronedarone HCl 400 MG TAB PO SCH (08:41)
[2021-04-20] MEDS: Pantoprazole 40 MG GRANULES PACKET PER TUBE SCH (08:42)
[2021-04-20] MEDS: Folic Acid 1 MG TAB PO SCH (08:42)
[2021-04-20] MEDS: Thiamine 100 MG TAB PO SCH (08:42)
[2021-04-20] MEDS: Hydrocortisone Sod Succ/PF 100 mg/2 ml Vial IVP SCH (08:43)
[2021-04-20] MEDS: Hydroxychloroquine Sulfate 200 MG TAB PO SCH (08:43)
[2021-04-20] MEDS: Cefepime 2 GM in Sodium Chloride 0.9% 100 ML IVPB SCH (08:47)
[2021-04-20] MEDS: Fluconazole In NaCl,Iso-Osm 200 MG in Premix Bag 1 BAG IVPB SCH (09:37)
[2021-04-20] MEDS: Sodium Bicarbonate Tab 325 MG TAB PER TUBE SCH ×2 (09:44→18:18)
[2021-04-20 15:13] LABS: ANA Symphony (Qualitative) Negative (Negative); ANA Symphony (Quantitative) 0.3 Ratio (< 0.7 Negative); dsDNA IgG Antibody 0.7 IU/mL (<10 Negative)
[2021-04-20] MEDS: Norepinephrine 8 MG/0.9% NS 250 ML IVPB SCH (15:14)
[2021-04-20] MEDS: Lorazepam 2 MG/ML VIAL SLOW IVP PRN (15:14)
[2021-04-20] MEDS: Propofol 1,000 MG/100 ML VIAL IV PRN (18:17)
[2021-04-20 20:23] VITALS: TEMP 97.5
[2021-04-20] MEDS ORDERED: Morphine 4 MG/ML VIAL SLOW IVP PRN (20:59)
[2021-04-20] MEDS ORDERED: Lorazepam 2 MG/ML VIAL SLOW IVP PRN (21:00)
== END 2021-04-20 22:03 | disposition expired | DRG 870 ==
LOC: ERS 08:17 → IMCU/EMU 10:39 → CCU 04-15 04:20
PROVIDERS: ADMIT Family Medicine; ATTEND Internal Medicine
PROC: 30233N1 Transfusion of Nonautologous Red Blood Cells into Peripheral Vein, Percutaneous Approach (ICD-10-PCS; 2021-04-14)
PROC: 5A09457 Assistance with Respiratory Ventilation, 24-96 Consecutive Hours, Continuous Positive Airway Pressure (ICD-10-PCS; 2021-04-14)
PROC: 02HV33Z Insertion of Infusion Device into Superior Vena Cava, Percutaneous Approach (ICD-10-PCS; principal; 2021-04-15)
PROC: 5A1955Z Respiratory Ventilation, Greater than 96 Consecutive Hours (ICD-10-PCS; 2021-04-15)
PROC: B548ZZA Ultrasonography of Superior Vena Cava, Guidance (ICD-10-PCS; 2021-04-15)
PROC: 0BH17EZ Insertion of Endotracheal Airway into Trachea, Via Natural or Artificial Opening (ICD-10-PCS; 2021-04-15)
PROC: 3E033XZ Introduction of Vasopressor into Peripheral Vein, Percutaneous Approach (ICD-10-PCS; 2021-04-15)
DX: A41.9 Sepsis, unspecified organism (principal); R65.21 Severe sepsis with septic shock; J96.01 Acute respiratory failure with hypoxia; J18.9 Pneumonia, unspecified organism; I63.9 Cerebral infarction, unspecified; D65 Disseminated intravascular coagulation [defibrination syndrome]; R53.2 Functional quadriplegia; N17.0 Acute kidney failure with tubular necrosis; E87.2 Acidosis; J44.0 Chronic obstructive pulmonary disease with (acute) lower respiratory infection; I48.20 Chronic atrial fibrillation, unspecified; I13.0 Hypertensive heart and chronic kidney disease with heart failure and stage 1 through stage 4 chronic kidney disease, or unspecified chronic kidney disease; I50.32 Chronic diastolic (congestive) heart failure; B37.49 Other urogenital candidiasis; J98.11 Atelectasis; E46 Unspecified protein-calorie malnutrition; E87.0 Hyperosmolality and hypernatremia; G40.89 Other seizures; J44.1 Chronic obstructive pulmonary disease with (acute) exacerbation; I48.92 Unspecified atrial flutter; Z66 Do not resuscitate; Z20.822 Contact with and (suspected) exposure to COVID-19; L89.309 Pressure ulcer of unspecified buttock, unspecified stage; F17.220 Nicotine dependence, chewing tobacco, uncomplicated; L89.159 Pressure ulcer of sacral region, unspecified stage; N18.30 Chronic kidney disease, stage 3 unspecified; D63.1 Anemia in chronic kidney disease; E87.8 Other disorders of electrolyte and fluid balance, not elsewhere classified; F10.10 Alcohol abuse, uncomplicated; E83.51 Hypocalcemia; G89.29 Other chronic pain; M06.9 Rheumatoid arthritis, unspecified; E87.6 Hypokalemia; A53.9 Syphilis, unspecified; E86.1 Hypovolemia; R19.7 Diarrhea, unspecified; Z90.49 Acquired absence of other specified parts of digestive tract; Z88.5 Allergy status to narcotic agent; Z88.2 Allergy status to sulfonamides; Z88.7 Allergy status to serum and vaccine; Z99.81 Dependence on supplemental oxygen; Z74.01 Bed confinement status; Z85.21 Personal history of malignant neoplasm of larynx; Z79.52 Long term (current) use of systemic steroids; Z79.899 Other long term (current) drug therapy; Z68.27 Body mass index [BMI] 27.0-27.9, adult; Z78.1 Physical restraint status
CPT/HCPCS: 36415; 36416; 36430; 36600; 70450; 71045; 80048; 80053; 80061; 80202; 81003; 81015; 82040; 82306; 82550; 82553; 82570; 82805; 83605; 83690; 83735; 83880; 84156; 84300; 84484; 84540; 85025; 85379; 85384; 85610; 85730; 86038; 86225; 86593; 86780; 86850; 86900; 86901; 87040; 87086; 87149; 87324; 87389; 87449; 93005; 94002; 94003; 94640; 94644; 94660; 95816; 95819; 95957; 96365; 96366; 96367; J0610; J0692; J1160; J1450; J1720; J1815; J1940; J1953; J1956; J2060; J2270; J2704; J2765; J2920; J3010; J3370; J3475; J3480; J3490; J7030; J7050; J7070; J7512; J7611; J7620; P9016; P9047; U0002; U0003; U0005